=== PATIENT | female | born 1935 | race Caucasian/White ===

== ENCOUNTER 2017-05-18 09:51 | Inpatient (IN) | payer BC, OTHER ==
[~2017-05-18] VITALS: Ht 152.4 cm; Wt 79.4 kg
[2017-05-18] MEDS ORDERED: MECLIZINE HCL 12.5 MG TABLET. PO ONE (10:45)
--- NOTE | 2017-05-18 10:49 | EKG ---
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
[2017-05-18 10:54] LABS: BASO # 0.1 x10^3/uL (0.0-0.2); BASO % 1 % (0-3); EOS % 2 % (0-3); HEMATOCRIT 38.3 % (36.0-47.0); HEMOGLOBIN 12.9 g/dL (12.0-15.5); LYMPH # 1.8 x10^3/uL (1.0-4.8); LYMPH % 27 % (24-48); MEAN CORPUSCULAR HEMOGLOBIN 32 pg (25-35); MEAN CORPUSCULAR HGB CONC 34 g/dL (31-37); MEAN CORPUSCULAR VOLUME 94 fL (79-100); MONO % 7 % (0-9); NEUT % 63 % (31-73); PLATELET COUNT 199 x10^3/uL (140-400); RED CELL DISTRIBUTION WIDTH 13.7 % (11.5-14.5); WHITE BLOOD COUNT 6.8 x10^3/uL (4.0-11.0)
[2017-05-18 11:02] LABS: PROTHROMBIN TIME PATIENT 12.9 SEC (11.7-14.0)
[2017-05-18 11:06] LABS: CALCIUM 9.2 mg/dL (8.5-10.1); CREATININE 0.9 mg/dL (0.6-1.0); GFR 59.9; POTASSIUM 4.3 mmol/L (3.5-5.1)
[2017-05-18 11:13] LABS: ALBUMIN 3.6 g/dL (3.4-5.0); ALBUMIN/GLOBULIN RATIO 0.9 (1.0-1.7); TOTAL BILIRUBIN 0.6 mg/dL (0.2-1.0); TOTAL PROTEIN 7.8 g/dL (6.4-8.2)
--- NOTE | 2017-05-18 11:27 | RAD ---
CT head Indication: Vertigo Technique: CT head without IV contrast Comparison: None Findings: No pathologic extra-axial or intra-axial fluid collection. No midline shift. The ventricles and basal cisterns are within normal limits. No acute intracranial bleed. No focal loss of orellana-white of consolidation. No calvarial lesions. Visualized paranasal sinuses and mastoid air cells are clear. Impression: No acute intracranial process on this noncontrast CT. PQRS Compliance Statement: One or more of the following individualized dose reduction techniques were utilized for this examination: 1. Automated exposure control 2. Adjustment of the mA and/or kV according to patient size 3. Use of iterative reconstruction technique
--- NOTE | 2017-05-18 11:28 | RAD ---
Chest x-ray Indication: Palpitation Technique: Portable AP upright chest x-ray Comparison: Previous study from 04/08 2008 Findings: Heart is normal in size. Lungs are clear. No pneumothorax or pleural effusion. Visualized bony thorax within normal limits. Impression: No acute cardiopulmonary process.
[2017-05-18 11:59] LABS: BILIRUBIN,URINE NEGATIVE (NEG); GLUCOSE,URINE NEGATIVE (NEG); NITRITE,URINE NEGATIVE (NEG); PROTEIN,URINE NEGATIVE (NEG-TRACE); UROBILINOGEN,URINE 0.2 mg/dL (0.2 mg/dL)
[2017-05-18 12:19] LABS: SQUAMOUS EPITHELIAL CELL,UR MOD /LPF
[2017-05-18 12:20] LABS: BACTERIA,URINE MODERATE /HPF (0-FEW); RBC,URINE 0 /HPF (0-2)
[2017-05-18] MEDS ORDERED: ONDANSETRON PF 4 MG/2 ML VIAL. IV PRN (13:45)
[2017-05-18] MEDS ORDERED: ACETAMINOPHEN 325 MG TABLET. PO PRN (13:45)
--- NOTE | 2017-05-18 14:25 | PHYS DOC ---
Past Medical History Past Medical History: Asthma, Cancer, High Cholesterol, Hypertension Additional Past Medical Histor: Breast CA Past Surgical History: Appendectomy, Cancer Surgery, Cholecystectomy, Hysterectomy, Tonsillectomy Additional Past Surgical Histo: R Mastectomy Alcohol Use: None Drug Use: None Adult General Chief Complaint Chief Complaint: DIZZY/LIGHT HEADED HPI HPI Patient is a 82 year old female who presents with vertigo & palpitations. The patient reports onset of symptoms this morning with dizziness/lightheadedness/ vertigo, palpitations, chest tightness. She states symptoms are better while at rest now. she denies fevers/chills, headache, vision changes, shortness of breath, extremity numbness/weakness, nausea, vomiting, diarrhea. She denies previous history of similar symptoms. She has history of arrhythmia, takes metoprolol, amlodipine, losartan prescribed by Dr. Epstein. She denies history of CAD, CVA. PCP is Dr. Freeman. Review of Systems Review of Systems Constitutional: Denies fever or chills Eyes: Denies change in visual acuity HENT: Denies nasal congestion or sore throat Respiratory: Denies cough or shortness of breath Cardiovascular: Reports palpitations & chest tightness. Denies edema GI: Denies abdominal pain, nausea, vomiting, bloody stools or diarrhea : Denies dysuria or hematuria Musculoskeletal: Denies back pain or joint pain Integument: Denies rash or skin lesions Neurologic: Reports vertigo. Denies headache, focal weakness or sensory changes Current Medications Current Medications Current Medications Medications (Trade) Dose Ordered Sig/Opal Start Time Stop Time Status Last Admin Dose Admin Meclizine HCl (Antivert) 12.5 mg 1X ONCE 05/18/17 10:45 05/18/17 10:47 DC 05/18/17 10:57 12.5 MG Allergies Allergies Allergies Coded Allergies Type Severity Reaction Last Updated Verified No Known Drug Allergies 05/18/17 No Physical Exam Physical Exam Constitutional: obese, no acute distress, non-toxic appearance. HENT: Normocephalic, atraumatic, bilateral external ears normal, oropharynx moist, nose normal. TMs clear bilaterally. Eyes: PERRLA, EOMI, conjunctiva normal, no discharge. Neck: supple, no stridor. Cardiovascular: RRR, no murmurs, no edema. Lungs & Thorax: LCTAB, no wheezing, no respiratory distress. Abdomen: soft, nontender, nondistended. Skin: Warm, dry, no erythema, no rash. Back: No tenderness. Extremities: No tenderness, no edema. distal pulses 2+ bilateral lower extremities. Neurologic: Alert and oriented X 3, CN2-12 grossly intact, symmetric strength/ sensation to upper & lower extremities, no focal deficits noted. Psychologic: Affect normal, judgement normal, mood normal. Current Patient Data Vital Signs Vital Signs Date Time Temp Pulse Resp B/P (MAP) Pulse Ox O2 Delivery O2 Flow Rate FiO2 05/18/17 12:40 65 15 171/77 (108) 97 Room Air 05/18/17 09:59 98.4 98.4 Lab Values Laboratory Tests Test 05/18/17 10:35 05/18/17 11:48 White Blood Count 6.8 x10^3/uL (4.0-11.0) Red Blood Count 4.10 x10^6/uL (3.50-5.40) Hemoglobin 12.9 g/dL (12.0-15.5) Hematocrit 38.3 % (36.0-47.0) Mean Corpuscular Volume 94 fL (79-100) Mean Corpuscular Hemoglobin 32 pg (25-35) Mean Corpuscular Hemoglobin Concent 34 g/dL (31-37) Red Cell Distribution Width 13.7 % (11.5-14.5) Platelet Count 199 x10^3/uL (140-400) Neutrophils (%) (Auto) 63 % (31-73) Lymphocytes (%) (Auto) 27 % (24-48) Monocytes (%) (Auto) 7 % (0-9) Eosinophils (%) (Auto) 2 % (0-3) Basophils (%) (Auto) 1 % (0-3) Neutrophils # (Auto) 4.3 x10^3uL (1.8-7.7) Lymphocytes # (Auto) 1.8 x10^3/uL (1.0-4.8) Monocytes # (Auto) 0.5 x10^3/uL (0.0-1.1) Eosinophils # (Auto) 0.1 x10^3/uL (0.0-0.7) Basophils # (Auto) 0.1 x10^3/uL (0.0-0.2) Prothrombin Time 12.9 SEC (11.7-14.0) Prothrombin Time INR 1.0 (0.8-1.1) PTT 25 SEC (24-38) Sodium Level 139 mmol/L (136-145) Potassium Level 4.3 mmol/L (3.5-5.1) Chloride Level 103 mmol/L (98-107) Carbon Dioxide Level 31 mmol/L (21-32) Anion Gap 5 (6-14) L Blood Urea Nitrogen 16 mg/dL (7-20) Creatinine 0.9 mg/dL (0.6-1.0) Estimated GFR (Cockcroft-Gault) 59.9 BUN/Creatinine Ratio 18 (6-20) Glucose Level 118 mg/dL (70-99) H Calcium Level 9.2 mg/dL (8.5-10.1) Magnesium Level 2.3 mg/dL (1.8-2.4) Total Bilirubin 0.6 mg/dL (0.2-1.0) Aspartate Amino Transferase (AST) 20 U/L (15-37) Alanine Aminotransferase (ALT) 25 U/L (14-59) Alkaline Phosphatase 79 U/L (46-116) Troponin I Quantitative < 0.017 ng/mL (0.000-0.055) BO-Gsw-D-Type Natriuretic Peptide 193 pg/mL (0-449) Total Protein 7.8 g/dL (6.4-8.2) Albumin 3.6 g/dL (3.4-5.0) Albumin/Globulin Ratio 0.9 (1.0-1.7) L Thyroid Stimulating Hormone (TSH) 3.882 uIU/mL (0.358-3.74) H Urine Collection Type Unknown Urine Color Yellow Urine Clarity Clear Urine pH 6.0 Urine Specific [place] 1.010 Urine Protein Negative mg/dL (NEG-TRACE) Urine Glucose (UA) Negative mg/dL (NEG) Urine Ketones (Stick) Negative mg/dL (NEG) Urine Blood Negative (NEG) Urine Nitrite Negative (NEG) Urine Bilirubin Negative (NEG) Urine Urobilinogen Dipstick 0.2 mg/dL (0.2 mg/dL) Urine Leukocyte Esterase Trace (NEG) Urine RBC 0 /HPF (0-2) Urine WBC 1-4 /HPF (0-4) Urine Squamous Epithelial Cells Mod /LPF Urine Bacteria Moderate /HPF (0-FEW) Laboratory Tests 05/18/17 10:35 Laboratory Tests 05/18/17 10:35 EKG EKG interpreted by me: NSR rate 68, no acute ST/T wave changes, normal intervals, no ectopy.[] Radiology/Procedures Radiology/Procedures PROCEDURE: CT HEAD WO CONTRAST CT head Indication: Vertigo Technique: CT head without IV contrast Comparison: None Findings: No pathologic extra-axial or intra-axial fluid collection. No midline shift. The ventricles and basal cisterns are within normal limits. No acute intracranial bleed. No focal loss of orellana-white of consolidation. No calvarial lesions. Visualized paranasal sinuses and mastoid air cells are clear. Impression: No acute intracranial process on this noncontrast CT. PQRS Compliance Statement: One or more of the following individualized dose reduction techniques were utilized for this examination: 1. Automated exposure control 2. Adjustment of the mA and/or kV according to patient size 3. Use of iterative reconstruction technique DICTATED and SIGNED BY: SOLEDAD STARKS DO DATE: 05/18/171120 PROCEDURE: CHEST AP ONLY Chest x-ray Indication: Palpitation Technique: Portable AP upright chest x-ray Comparison: Previous study from 04/08 2008 Findings: Heart is normal in size. Lungs are clear. No pneumothorax or pleural effusion. Visualized bony thorax within normal limits. Impression: No acute cardiopulmonary process. DICTATED and SIGNED BY: SOLEDAD STARKS DO DATE: 05/18/17 112[] Course & Med Decision Making Course & Med Decision Making Pertinent Labs and Imaging studies reviewed. (See chart for details) The patient presents with vertigo and palpitations. She still has some residual dizziness. No focal findings on exam. No arrhythmia on telemetry monitoring. Gave meclizine. Obtained labs, EKG, chest x-ray, head CT. No significant abnormality identified. She had persistent dizziness/vertigo with ambulation in the department. Recommended admission to the hospital for further evaluation and treatment. She agreed with plan of care. Discussed with Dr. Marie who agrees to admit to inpatient status, cardiology consult to Dr. Epstein & neurology consult to Dr. Thorpe. The patient was admitted in stable condition. [] Dragon Disclaimer Dragon Disclaimer This electronic medical record was generated, in whole or in part, using a voice recognition dictation system. Departure Departure Impression: Primary Impression: Vertigo Additional Impression: Palpitations Disposition: ADMITTED INPATIENT Admitting Physician: Gay Marie Condition: STABLE Referrals: JONATHAN FREEMAN MD (PCP) Problem Qualifiers MARGARITO MITCHELL MD May 18, 2017 14:25
[2017-05-18 14:52] VITALS: BP 167/61
[2017-05-18 14:54] VITALS: BP 167/61
--- NOTE | 2017-05-18 15:13 | PDOC2 ---
CARDIAC CONSULT DATE OF CONSULT Date of Consult DATE: 05/18/17 TIME: 15:05 REASON FOR CONSULT Reason for Consult: palpitations REFERRING PHYSICIAN Referring Physician: Dr. De La Fuente SOURCE Source: Chart review, Patient HISTORY OF PRESENT ILLNESS HISTORY OF PRESENT ILLNESS This is an 82 yo female who presented with complaints of palpitations, dizziness , and ringing in the ear. Patient reports symptoms began upon awakening this morning. Could feel heart beating fast in her chest. Laid back down in bed, felt dizzy. Sat up and felt nauseated and fatigued. Called son who called our office and was recommended to go to the ED if symptoms did not subside. Denies any chest pain, SOA, or diaphoresis. Symptoms resolved prior to arrival. Does have a history of palpations. Had an event monitor in the past that did not reveal any significant arrhythmias. Reports compliance with medications. PAST MEDICAL HISTORY Cardiovascular: CHF (diastolic ), HTN, Hyperlipidemia, Other (palpitations ) Pulmonary: Asthma GI: GERD Heme/Onc: Anemia NOS, Cancer (breast ) Hepatobiliary: No pertinent hx Psych: Depression Musculoskeletal: Osteoarthritis Rheumatologic: No pertinent hx Infectious disease: No pertinent hx ENT: No pertinent hx Renal/: Chronic renal insuff Endocrine: No pertinent hx, Osteoporosis Dermatology: No pertinent hx PAST SURGICAL HISTORY Past Surgical History: Appendectomy, Cholecystectomy, Tonsillectomy, Hysterectomy, Other (mastectomy ) FAMILY HISTORY Family History: Diabetes SOCIAL HISTORY Smoke: No ALCOHOL: none Drugs: None Lives: with Family CURRENT MEDICATIONS CURRENT MEDICATIONS Current Medications Medications (Trade) Dose Ordered Sig/Opal Route PRN Reason Start Time Stop Time Status Last Admin Dose Admin Meclizine HCl (Antivert) 12.5 mg 1X ONCE PO 05/18/17 10:45 05/18/17 10:47 DC 05/18/17 10:57 ALLERGIES ALLERGIES: Coded Allergies: No Known Drug Allergies (Unverified , 05/18/17) ROS Review of System 14 point ROS conducted with pertinent positives noted above in HPI. PHYSICAL EXAM General: Alert, Oriented X3, Cooperative, No acute distress HEENT: Atraumatic, Mucous membr. moist/pink Lungs: Clear to auscultation, Normal air movement Heart: Regular rate, Normal S1, Normal S2 Abdomen: Soft, No tenderness Extremities: Normal pulses, Other (1+ bilateral LE edema ) Skin: No breakdown, No significant lesion Neuro: Normal speech, Sensation intact Psych/Mental Status: Mental status NL, Mood NL MUSCULOSKELETAL: Osteoarthritic changes both hands VITALS VITALS Vital Signs Date Time Temp Pulse Resp B/P (MAP) Pulse Ox O2 Delivery O2 Flow Rate FiO2 05/18/17 14:54 98.3 74 17 167/61 (96) 93 Room Air 98.3 LABS Lab: Laboratory Tests Test 05/18/17 10:35 05/18/17 11:48 White Blood Count 6.8 x10^3/uL (4.0-11.0) Red Blood Count 4.10 x10^6/uL (3.50-5.40) Hemoglobin 12.9 g/dL (12.0-15.5) Hematocrit 38.3 % (36.0-47.0) Mean Corpuscular Volume 94 fL (79-100) Mean Corpuscular Hemoglobin 32 pg (25-35) Mean Corpuscular Hemoglobin Concent 34 g/dL (31-37) Red Cell Distribution Width 13.7 % (11.5-14.5) Platelet Count 199 x10^3/uL (140-400) Neutrophils (%) (Auto) 63 % (31-73) Lymphocytes (%) (Auto) 27 % (24-48) Monocytes (%) (Auto) 7 % (0-9) Eosinophils (%) (Auto) 2 % (0-3) Basophils (%) (Auto) 1 % (0-3) Neutrophils # (Auto) 4.3 x10^3uL (1.8-7.7) Lymphocytes # (Auto) 1.8 x10^3/uL (1.0-4.8) Monocytes # (Auto) 0.5 x10^3/uL (0.0-1.1) Eosinophils # (Auto) 0.1 x10^3/uL (0.0-0.7) Basophils # (Auto) 0.1 x10^3/uL (0.0-0.2) Prothrombin Time 12.9 SEC (11.7-14.0) Prothromb Time International Ratio 1.0 (0.8-1.1) Activated Partial Thromboplast Time 25 SEC (24-38) Sodium Level 139 mmol/L (136-145) Potassium Level 4.3 mmol/L (3.5-5.1) Chloride Level 103 mmol/L (98-107) Carbon Dioxide Level 31 mmol/L (21-32) Anion Gap 5 (6-14) Blood Urea Nitrogen 16 mg/dL (7-20) Creatinine 0.9 mg/dL (0.6-1.0) Estimated GFR (Cockcroft-Gault) 59.9 BUN/Creatinine Ratio 18 (6-20) Glucose Level 118 mg/dL (70-99) Calcium Level 9.2 mg/dL (8.5-10.1) Total Bilirubin 0.6 mg/dL (0.2-1.0) Aspartate Amino Transf (AST/SGOT) 20 U/L (15-37) Alanine Aminotransferase (ALT/SGPT) 25 U/L (14-59) Alkaline Phosphatase 79 U/L (46-116) Troponin I Quantitative < 0.017 ng/mL (0.000-0.055) SZ-Xbz-U-Type Natriuretic Peptide 193 pg/mL (0-449) Total Protein 7.8 g/dL (6.4-8.2) Albumin 3.6 g/dL (3.4-5.0) Albumin/Globulin Ratio 0.9 (1.0-1.7) Thyroid Stimulating Hormone (TSH) 3.882 uIU/mL (0.358-3.74) Urine Collection Type Unknown Urine Color Yellow Urine Clarity Clear Urine pH 6.0 Urine Specific [place] 1.010 Urine Protein Negative mg/dL (NEG-TRACE) Urine Glucose (UA) Negative mg/dL (NEG) Urine Ketones (Stick) Negative mg/dL (NEG) Urine Blood Negative (NEG) Urine Nitrite Negative (NEG) Urine Bilirubin Negative (NEG) Urine Urobilinogen Dipstick 0.2 mg/dL (0.2 mg/dL) Urine Leukocyte Esterase Trace (NEG) Urine RBC 0 /HPF (0-2) Urine WBC 1-4 /HPF (0-4) Urine Squamous Epithelial Cells Mod /LPF Urine Bacteria Moderate /HPF (0-FEW) ASSESSMENT/PLAN ASSESSMENT/PLAN 1. Palpitations, ? tachyarrhythmia; resolved 2. Hypertension; labile 3. Hyperlipidemia; check lipids 4. Chronic diastolic heart failure; compensated. LVEF previously 53% 5. Tinnitus Recommendations Place on telemetry and monitor Check lipids, TSH, Mg Consider increasing metoprolol for better rate control Check echo to assess LV function/presence of structural abnormalities Resume home anti HTN therapy; monitor to assess need for titration Problems: GERMAINE SHERIDAN APRN May 18, 2017 15:13
--- NOTE | 2017-05-18 15:13 | PDOC2 ---
NEUROLOGY CONSULT Date of Admission Date of Admission DATE: 05/18/17 TIME: 15:07 Reason for Consult Reason for Consult: Vertigo Referring Physician Referring Physician: Dr. Marie PCP: Dr. Quinn Source Source: Chart review, Patient History of Present Illness History of Present Illness The patient is an 82-year-old right-handed female who woke up this morning with a feeling of tinnitus in the right ear. 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 She noticed a fluttering in her chest. She has followed with Dr. Epstein for her cardiac problems. She then noticed room spinning vertigo worse when she laid down and better when she sat up. She laid down once more and had the vertigo. Since then she has had no more vertigo. There was no diplopia, dysphagia, dysarthria, numbness, or weakness. There is no history of stroke, seizure, or head injury. Past Medical History Cardiovascular: HTN, Hyperlipidemia Pulmonary: Asthma Heme/Onc: Cancer (breast) Past Surgical History Past Surgical History: Appendectomy, Cholecystectomy, Mastectomy, Tonsillectomy , Hysterectomy Family History Family History: No pertinent hx Social History Social History , lives with son, no alcohol or tobacco Current Medications Current Medications Current Medications Meclizine HCl (Antivert) 12.5 mg 1X ONCE PO Last administered on 05/18/17t 10: 57; Start 05/18/17 at 10:45; Stop 05/18/17 at 10:47; Status DC Ondansetron HCl (Zofran) 4 mg PRN Q8HRS PRN IV NAUSEA/VOMITING; Start 05/18/17 at 13:45; Stop 05/19/17 at 13:44 Acetaminophen (Tylenol) 650 mg PRN Q4HRS PRN PO FEVER; Start 05/18/17 at 13:45 ; Stop 05/19/17 at 13:44 Allergies Allergies: Coded Allergies: No Known Drug Allergies (Unverified , 05/18/17) ROS Review of System Patient denies fevers, chills, weight loss, dyspnea, angina, abdominal pain, change in bowels, or dysuria. 14 point review of systems is negative. Physical Exam Physical Examination PHYSICAL EXAMINATION: Vital signs: see above. General appearance is normal and in no acute distress. HEENT: Normocephalic and nontraumatic. Eyes, nose, ears, and throat are unremarkable. Tympanic membranes clear. Neck is supple. No lymphadenopathy. No bruits are heard over the carotid artery. No crepitus. NEUROLOGICAL EXAMINATION: Mental Status Examination: Alert. Oriented to time, place, and person. Answers questions and follows commends. Pupils are equal round and reactive to light and accommodation. Extraocular movements are intact. Visual field exam shows no defect on the direct confrontation. No motor or sensory deficits on the facial exam. Uvula in the midline and the soft palate elevated symmetrically. No deviation of the tongue to any direction. Hearing loss in the right ear. Shoulder shrug normal. Muscle tone is normal. Muscle strength is 5. Deep tendon reflexes are 2+ all around. Plantar reflex is with flexion response bilaterally. Vwxdtn-ws-zogp test performance is accurate. Tandem walk test is accurate. Alternative movements are accurate. Romberg test is negative. Gait is arthritic, she uses a cane. Sensory exam shows no deficits. No cerebellar signs are elicited. Vitals VITALS Vital Signs Date Time Temp Pulse Resp B/P (MAP) Pulse Ox O2 Delivery O2 Flow Rate FiO2 05/18/17 14:54 98.3 74 17 167/61 (96) 93 Room Air 98.3 Labs Labs Laboratory Tests Test 05/18/17 10:35 05/18/17 11:48 White Blood Count 6.8 x10^3/uL (4.0-11.0) Red Blood Count 4.10 x10^6/uL (3.50-5.40) Hemoglobin 12.9 g/dL (12.0-15.5) Hematocrit 38.3 % (36.0-47.0) Mean Corpuscular Volume 94 fL (79-100) Mean Corpuscular Hemoglobin 32 pg (25-35) Mean Corpuscular Hemoglobin Concent 34 g/dL (31-37) Red Cell Distribution Width 13.7 % (11.5-14.5) Platelet Count 199 x10^3/uL (140-400) Neutrophils (%) (Auto) 63 % (31-73) Lymphocytes (%) (Auto) 27 % (24-48) Monocytes (%) (Auto) 7 % (0-9) Eosinophils (%) (Auto) 2 % (0-3) Basophils (%) (Auto) 1 % (0-3) Neutrophils # (Auto) 4.3 x10^3uL (1.8-7.7) Lymphocytes # (Auto) 1.8 x10^3/uL (1.0-4.8) Monocytes # (Auto) 0.5 x10^3/uL (0.0-1.1) Eosinophils # (Auto) 0.1 x10^3/uL (0.0-0.7) Basophils # (Auto) 0.1 x10^3/uL (0.0-0.2) Prothrombin Time 12.9 SEC (11.7-14.0) Prothromb Time International Ratio 1.0 (0.8-1.1) Activated Partial Thromboplast Time 25 SEC (24-38) Sodium Level 139 mmol/L (136-145) Potassium Level 4.3 mmol/L (3.5-5.1) Chloride Level 103 mmol/L (98-107) Carbon Dioxide Level 31 mmol/L (21-32) Anion Gap 5 (6-14) Blood Urea Nitrogen 16 mg/dL (7-20) Creatinine 0.9 mg/dL (0.6-1.0) Estimated GFR (Cockcroft-Gault) 59.9 BUN/Creatinine Ratio 18 (6-20) Glucose Level 118 mg/dL (70-99) Calcium Level 9.2 mg/dL (8.5-10.1) Total Bilirubin 0.6 mg/dL (0.2-1.0) Aspartate Amino Transf (AST/SGOT) 20 U/L (15-37) Alanine Aminotransferase (ALT/SGPT) 25 U/L (14-59) Alkaline Phosphatase 79 U/L (46-116) Troponin I Quantitative < 0.017 ng/mL (0.000-0.055) TH-Avj-X-Type Natriuretic Peptide 193 pg/mL (0-449) Total Protein 7.8 g/dL (6.4-8.2) Albumin 3.6 g/dL (3.4-5.0) Albumin/Globulin Ratio 0.9 (1.0-1.7) Thyroid Stimulating Hormone (TSH) 3.882 uIU/mL (0.358-3.74) Urine Collection Type Unknown Urine Color Yellow Urine Clarity Clear Urine pH 6.0 Urine Specific [place] 1.010 Urine Protein Negative mg/dL (NEG-TRACE) Urine Glucose (UA) Negative mg/dL (NEG) Urine Ketones (Stick) Negative mg/dL (NEG) Urine Blood Negative (NEG) Urine Nitrite Negative (NEG) Urine Bilirubin Negative (NEG) Urine Urobilinogen Dipstick 0.2 mg/dL (0.2 mg/dL) Urine Leukocyte Esterase Trace (NEG) Urine RBC 0 /HPF (0-2) Urine WBC 1-4 /HPF (0-4) Urine Squamous Epithelial Cells Mod /LPF Urine Bacteria Moderate /HPF (0-FEW) Laboratory Tests Test 05/18/17 10:35 05/18/17 11:48 White Blood Count 6.8 x10^3/uL (4.0-11.0) Red Blood Count 4.10 x10^6/uL (3.50-5.40) Hemoglobin 12.9 g/dL (12.0-15.5) Hematocrit 38.3 % (36.0-47.0) Mean Corpuscular Volume 94 fL (79-100) Mean Corpuscular Hemoglobin 32 pg (25-35) Mean Corpuscular Hemoglobin Concent 34 g/dL (31-37) Red Cell Distribution Width 13.7 % (11.5-14.5) Platelet Count 199 x10^3/uL (140-400) Neutrophils (%) (Auto) 63 % (31-73) Lymphocytes (%) (Auto) 27 % (24-48) Monocytes (%) (Auto) 7 % (0-9) Eosinophils (%) (Auto) 2 % (0-3) Basophils (%) (Auto) 1 % (0-3) Neutrophils # (Auto) 4.3 x10^3uL (1.8-7.7) Lymphocytes # (Auto) 1.8 x10^3/uL (1.0-4.8) Monocytes # (Auto) 0.5 x10^3/uL (0.0-1.1) Eosinophils # (Auto) 0.1 x10^3/uL (0.0-0.7) Basophils # (Auto) 0.1 x10^3/uL (0.0-0.2) Prothrombin Time 12.9 SEC (11.7-14.0) Prothromb Time International Ratio 1.0 (0.8-1.1) Activated Partial Thromboplast Time 25 SEC (24-38) Sodium Level 139 mmol/L (136-145) Potassium Level 4.3 mmol/L (3.5-5.1) Chloride Level 103 mmol/L (98-107) Carbon Dioxide Level 31 mmol/L (21-32) Anion Gap 5 (6-14) Blood Urea Nitrogen 16 mg/dL (7-20) Creatinine 0.9 mg/dL (0.6-1.0) Estimated GFR (Cockcroft-Gault) 59.9 BUN/Creatinine Ratio 18 (6-20) Glucose Level 118 mg/dL (70-99) Calcium Level 9.2 mg/dL (8.5-10.1) Total Bilirubin 0.6 mg/dL (0.2-1.0) Aspartate Amino Transf (AST/SGOT) 20 U/L (15-37) Alanine Aminotransferase (ALT/SGPT) 25 U/L (14-59) Alkaline Phosphatase 79 U/L (46-116) Troponin I Quantitative < 0.017 ng/mL (0.000-0.055) EB-Wra-D-Type Natriuretic Peptide 193 pg/mL (0-449) Total Protein 7.8 g/dL (6.4-8.2) Albumin 3.6 g/dL (3.4-5.0) Albumin/Globulin Ratio 0.9 (1.0-1.7) Thyroid Stimulating Hormone (TSH) 3.882 uIU/mL (0.358-3.74) Urine Collection Type Unknown Urine Color Yellow Urine Clarity Clear Urine pH 6.0 Urine Specific [place] 1.010 Urine Protein Negative mg/dL (NEG-TRACE) Urine Glucose (UA) Negative mg/dL (NEG) Urine Ketones (Stick) Negative mg/dL (NEG) Urine Blood Negative (NEG) Urine Nitrite Negative (NEG) Urine Bilirubin Negative (NEG) Urine Urobilinogen Dipstick 0.2 mg/dL (0.2 mg/dL) Urine Leukocyte Esterase Trace (NEG) Urine RBC 0 /HPF (0-2) Urine WBC 1-4 /HPF (0-4) Urine Squamous Epithelial Cells Mod /LPF Urine Bacteria Moderate /HPF (0-FEW) Images Images Findings: No pathologic extra-axial or intra-axial fluid collection. No midline shift. The ventricles and basal cisterns are within normal limits. No acute intracranial bleed. No focal loss of orellana-white of consolidation. No calvarial lesions. Visualized paranasal sinuses and mastoid air cells are clear. Impression: No acute intracranial process on this noncontrast CT. Assessment/Plan Assessment/Plan Impression: Vertigo, peripheral, suspect right labyrinthine dysfunction although bedside examination is now completely normal. Prior hearing loss right ear No evidence of central problem such as stroke. Cardiac arrhythmia, possible, and superficially it sounds like she could've had fibrillation with an embolic stroke, but none is apparent on examination. Recommendations: Cardiac evaluation Hold on MRI of the brain Rehabilitation screening Home tomorrow if stable. Thank you for letting me help with the patient's care. NARINDER GATES MD May 18, 2017 15:13
[2017-05-18] MEDS ORDERED: CHOL100013 PO (15:15)
[2017-05-18] MEDS ORDERED: ASPI-630 PO (15:15)
[2017-05-18] MEDS ORDERED: ASCO10002 PO (15:15)
[2017-05-18] MEDS ORDERED: AMLO10TA2 PO (15:15)
[2017-05-18] MEDS ORDERED: METO50TA6 PO (15:15)
[2017-05-18] MEDS ORDERED: BENA20TA2 PO (15:15)
[2017-05-18 19:55] VITALS: BP 166/59
[2017-05-18] MEDS: LISINOPRIL 20 MG TABLET PO SCH (21:00)
[2017-05-18] MEDS: METOPROLOL TART IMMED RELEASE 50 MG TABLET. PO SCH (21:00)
[2017-05-18 23:35] VITALS: BP 154/69
[2017-05-19 02:29] LABS: BASO % 1 % (0-3); EOS % 2 % (0-3); HEMATOCRIT 35.8 % (36.0-47.0); HEMOGLOBIN 11.9 g/dL (12.0-15.5); LYMPH # 1.7 x10^3/uL (1.0-4.8); LYMPH % 29 % (24-48); MEAN CORPUSCULAR HEMOGLOBIN 31 pg (25-35); MEAN CORPUSCULAR HGB CONC 33 g/dL (31-37); MEAN CORPUSCULAR VOLUME 93 fL (79-100); MONO % 9 % (0-9); NEUT % 60 % (31-73); PLATELET COUNT 179 x10^3/uL (140-400); RED BLOOD COUNT 3.84 x10^6/uL (3.50-5.40); WHITE BLOOD COUNT 6.1 x10^3/uL (4.0-11.0)
[2017-05-19 03:33] LABS: CALCIUM 8.6 mg/dL (8.5-10.1); CREATININE 0.8 mg/dL (0.6-1.0); GFR 68.7; POTASSIUM 3.7 mmol/L (3.5-5.1)
[2017-05-19 03:35] VITALS: BP 150/59
[2017-05-19 03:45] LABS: CHOLESTEROL/HDL RATIO 3.9
[2017-05-19 06:56] VITALS: BP 151/49
--- NOTE | 2017-05-19 07:59 | PDOC ---
PROGRESS NOTES Assessment Problems Medical Problems: (1) Palpitations Status: Acute (2) Vertigo Status: Acute Vertigo, peripheral, suspect right labyrinthine dysfunction although bedside examination is now completely normal. Prior hearing loss right ear No evidence of central problem such as stroke. Cardiac arrhythmia, possible, and superficially it sounds like she could've had fibrillation with an embolic stroke, but none is apparent on examination. Plan Cardiac evaluation Hold on MRI of the brain Rehabilitation screening Home today Follow-up with neurology as needed Subjective Feels better, wants to go home, worried about blood pressure fluctuations, though Objective Vital Signs Date Time Temp Pulse Resp B/P (MAP) Pulse Ox O2 Delivery O2 Flow Rate FiO2 05/19/17 06:56 97.4 71 18 151/49 (83) 95 Room Air 97.4 PHYSICAL EXAM Alert. Oriented to time, place and person. PERRL. EOMI. no nystagmus CN: Right ear hearing loss, otherwise no focal findings. Muscle tone: normal. Muscle strength: 5/5 DTR: 2+ Plantar reflex: Flexor Gait: Does well with minimal assistance, note that she chronically uses a cane Sensory exam: no abnormal findings. No cerebellar signs elicited. Review of Relevant I have reviewed the following items deni (where applicable) has been applied. Labs Laboratory Tests Test 05/18/17 10:35 05/18/17 11:48 05/19/17 02:00 White Blood Count 6.8 x10^3/uL (4.0-11.0) 6.1 x10^3/uL (4.0-11.0) Red Blood Count 4.10 x10^6/uL (3.50-5.40) 3.84 x10^6/uL (3.50-5.40) Hemoglobin 12.9 g/dL (12.0-15.5) 11.9 g/dL (12.0-15.5) Hematocrit 38.3 % (36.0-47.0) 35.8 % (36.0-47.0) Mean Corpuscular Volume 94 fL (79-100) 93 fL (79-100) Mean Corpuscular Hemoglobin 32 pg (25-35) 31 pg (25-35) Mean Corpuscular Hemoglobin Concent 34 g/dL (31-37) 33 g/dL (31-37) Red Cell Distribution Width 13.7 % (11.5-14.5) 14.0 % (11.5-14.5) Platelet Count 199 x10^3/uL (140-400) 179 x10^3/uL (140-400) Neutrophils (%) (Auto) 63 % (31-73) 60 % (31-73) Lymphocytes (%) (Auto) 27 % (24-48) 29 % (24-48) Monocytes (%) (Auto) 7 % (0-9) 9 % (0-9) Eosinophils (%) (Auto) 2 % (0-3) 2 % (0-3) Basophils (%) (Auto) 1 % (0-3) 1 % (0-3) Neutrophils # (Auto) 4.3 x10^3uL (1.8-7.7) 3.6 x10^3uL (1.8-7.7) Lymphocytes # (Auto) 1.8 x10^3/uL (1.0-4.8) 1.7 x10^3/uL (1.0-4.8) Monocytes # (Auto) 0.5 x10^3/uL (0.0-1.1) 0.5 x10^3/uL (0.0-1.1) Eosinophils # (Auto) 0.1 x10^3/uL (0.0-0.7) 0.1 x10^3/uL (0.0-0.7) Basophils # (Auto) 0.1 x10^3/uL (0.0-0.2) 0.0 x10^3/uL (0.0-0.2) Prothrombin Time 12.9 SEC (11.7-14.0) Prothromb Time International Ratio 1.0 (0.8-1.1) Activated Partial Thromboplast Time 25 SEC (24-38) Sodium Level 139 mmol/L (136-145) 139 mmol/L (136-145) Potassium Level 4.3 mmol/L (3.5-5.1) 3.7 mmol/L (3.5-5.1) Chloride Level 103 mmol/L (98-107) 105 mmol/L (98-107) Carbon Dioxide Level 31 mmol/L (21-32) 30 mmol/L (21-32) Anion Gap 5 (6-14) 4 (6-14) Blood Urea Nitrogen 16 mg/dL (7-20) 13 mg/dL (7-20) Creatinine 0.9 mg/dL (0.6-1.0) 0.8 mg/dL (0.6-1.0) Estimated GFR (Cockcroft-Gault) 59.9 68.7 BUN/Creatinine Ratio 18 (6-20) Glucose Level 118 mg/dL (70-99) 103 mg/dL (70-99) Calcium Level 9.2 mg/dL (8.5-10.1) 8.6 mg/dL (8.5-10.1) Magnesium Level 2.3 mg/dL (1.8-2.4) Total Bilirubin 0.6 mg/dL (0.2-1.0) Aspartate Amino Transf (AST/SGOT) 20 U/L (15-37) Alanine Aminotransferase (ALT/SGPT) 25 U/L (14-59) Alkaline Phosphatase 79 U/L (46-116) Troponin I Quantitative < 0.017 ng/mL (0.000-0.055) < 0.017 ng/mL (0.000-0.055) AB-Tad-A-Type Natriuretic Peptide 193 pg/mL (0-449) Total Protein 7.8 g/dL (6.4-8.2) Albumin 3.6 g/dL (3.4-5.0) Albumin/Globulin Ratio 0.9 (1.0-1.7) Thyroid Stimulating Hormone (TSH) 3.882 uIU/mL (0.358-3.74) Urine Collection Type Unknown Urine Color Yellow Urine Clarity Clear Urine pH 6.0 Urine Specific [place] 1.010 Urine Protein Negative mg/dL (NEG-TRACE) Urine Glucose (UA) Negative mg/dL (NEG) Urine Ketones (Stick) Negative mg/dL (NEG) Urine Blood Negative (NEG) Urine Nitrite Negative (NEG) Urine Bilirubin Negative (NEG) Urine Urobilinogen Dipstick 0.2 mg/dL (0.2 mg/dL) Urine Leukocyte Esterase Trace (NEG) Urine RBC 0 /HPF (0-2) Urine WBC 1-4 /HPF (0-4) Urine Squamous Epithelial Cells Mod /LPF Urine Bacteria Moderate /HPF (0-FEW) Triglycerides Level 106 mg/dL (0-150) Cholesterol Level 165 mg/dL (0-200) LDL Cholesterol, Calculated 102 mg/dL (0-100) VLDL Cholesterol, Calculated 21 mg/dL (0-40) Non-HDL Cholesterol Calculated 123 mg/dL (0-129) HDL Cholesterol 42 mg/dL (40-60) Cholesterol/HDL Ratio 3.9 Laboratory Tests Test 05/18/17 10:35 05/18/17 11:48 05/19/17 02:00 White Blood Count 6.8 x10^3/uL (4.0-11.0) 6.1 x10^3/uL (4.0-11.0) Red Blood Count 4.10 x10^6/uL (3.50-5.40) 3.84 x10^6/uL (3.50-5.40) Hemoglobin 12.9 g/dL (12.0-15.5) 11.9 g/dL (12.0-15.5) Hematocrit 38.3 % (36.0-47.0) 35.8 % (36.0-47.0) Mean Corpuscular Volume 94 fL (79-100) 93 fL (79-100) Mean Corpuscular Hemoglobin 32 pg (25-35) 31 pg (25-35) Mean Corpuscular Hemoglobin Concent 34 g/dL (31-37) 33 g/dL (31-37) Red Cell Distribution Width 13.7 % (11.5-14.5) 14.0 % (11.5-14.5) Platelet Count 199 x10^3/uL (140-400) 179 x10^3/uL (140-400) Neutrophils (%) (Auto) 63 % (31-73) 60 % (31-73) Lymphocytes (%) (Auto) 27 % (24-48) 29 % (24-48) Monocytes (%) (Auto) 7 % (0-9) 9 % (0-9) Eosinophils (%) (Auto) 2 % (0-3) 2 % (0-3) Basophils (%) (Auto) 1 % (0-3) 1 % (0-3) Neutrophils # (Auto) 4.3 x10^3uL (1.8-7.7) 3.6 x10^3uL (1.8-7.7) Lymphocytes # (Auto) 1.8 x10^3/uL (1.0-4.8) 1.7 x10^3/uL (1.0-4.8) Monocytes # (Auto) 0.5 x10^3/uL (0.0-1.1) 0.5 x10^3/uL (0.0-1.1) Eosinophils # (Auto) 0.1 x10^3/uL (0.0-0.7) 0.1 x10^3/uL (0.0-0.7) Basophils # (Auto) 0.1 x10^3/uL (0.0-0.2) 0.0 x10^3/uL (0.0-0.2) Prothrombin Time 12.9 SEC (11.7-14.0) Prothromb Time International Ratio 1.0 (0.8-1.1) Activated Partial Thromboplast Time 25 SEC (24-38) Sodium Level 139 mmol/L (136-145) 139 mmol/L (136-145) Potassium Level 4.3 mmol/L (3.5-5.1) 3.7 mmol/L (3.5-5.1) Chloride Level 103 mmol/L (98-107) 105 mmol/L (98-107) Carbon Dioxide Level 31 mmol/L (21-32) 30 mmol/L (21-32) Anion Gap 5 (6-14) 4 (6-14) Blood Urea Nitrogen 16 mg/dL (7-20) 13 mg/dL (7-20) Creatinine 0.9 mg/dL (0.6-1.0) 0.8 mg/dL (0.6-1.0) Estimated GFR (Cockcroft-Gault) 59.9 68.7 BUN/Creatinine Ratio 18 (6-20) Glucose Level 118 mg/dL (70-99) 103 mg/dL (70-99) Calcium Level 9.2 mg/dL (8.5-10.1) 8.6 mg/dL (8.5-10.1) Magnesium Level 2.3 mg/dL (1.8-2.4) Total Bilirubin 0.6 mg/dL (0.2-1.0) Aspartate Amino Transf (AST/SGOT) 20 U/L (15-37) Alanine Aminotransferase (ALT/SGPT) 25 U/L (14-59) Alkaline Phosphatase 79 U/L (46-116) Troponin I Quantitative < 0.017 ng/mL (0.000-0.055) < 0.017 ng/mL (0.000-0.055) ID-Ifc-B-Type Natriuretic Peptide 193 pg/mL (0-449) Total Protein 7.8 g/dL (6.4-8.2) Albumin 3.6 g/dL (3.4-5.0) Albumin/Globulin Ratio 0.9 (1.0-1.7) Thyroid Stimulating Hormone (TSH) 3.882 uIU/mL (0.358-3.74) Urine Collection Type Unknown Urine Color Yellow Urine Clarity Clear Urine pH 6.0 Urine Specific [place] 1.010 Urine Protein Negative mg/dL (NEG-TRACE) Urine Glucose (UA) Negative mg/dL (NEG) Urine Ketones (Stick) Negative mg/dL (NEG) Urine Blood Negative (NEG) Urine Nitrite Negative (NEG) Urine Bilirubin Negative (NEG) Urine Urobilinogen Dipstick 0.2 mg/dL (0.2 mg/dL) Urine Leukocyte Esterase Trace (NEG) Urine RBC 0 /HPF (0-2) Urine WBC 1-4 /HPF (0-4) Urine Squamous Epithelial Cells Mod /LPF Urine Bacteria Moderate /HPF (0-FEW) Triglycerides Level 106 mg/dL (0-150) Cholesterol Level 165 mg/dL (0-200) LDL Cholesterol, Calculated 102 mg/dL (0-100) VLDL Cholesterol, Calculated 21 mg/dL (0-40) Non-HDL Cholesterol Calculated 123 mg/dL (0-129) HDL Cholesterol 42 mg/dL (40-60) Cholesterol/HDL Ratio 3.9 Medications Current Medications Meclizine HCl (Antivert) 12.5 mg 1X ONCE PO Last administered on 05/18/17t 10: 57; Start 05/18/17 at 10:45; Stop 05/18/17 at 10:47; Status DC Ondansetron HCl (Zofran) 4 mg PRN Q8HRS PRN IV NAUSEA/VOMITING; Start 05/18/17 at 13:45; Stop 05/19/17 at 13:44 Acetaminophen (Tylenol) 650 mg PRN Q4HRS PRN PO FEVER; Start 05/18/17 at 13:45 ; Stop 05/19/17 at 13:44 Amlodipine Besylate (Norvasc) 10 mg DAILY PO ; Start 05/19/17 at 09:00 Aspirin (Children'S Aspirin) 81 mg DAILY PO ; Start 05/19/17 at 09:00 Metoprolol Tartrate (Lopressor) 50 mg BID PO ; Start 05/18/17 at 21:00 Lisinopril (Prinivil) 20 mg BID PO ; Start 05/18/17 at 21:00 Active Scripts Active Reported Amlodipine Besylate 10 Mg Tablet 10 Mg PO DAILY Metoprolol Tartrate 50 Mg Tablet 1 Tab PO BID Vitamin C (Ascorbic Acid) 1,000 Mg Tablet 1,000 Mg PO Vitamin D (Cholecalciferol (Vitamin D3)) 1,000 Unit Capsule 1 Cap PO DAILY Aspirin 81 Mg Tab.chew 1 Tab PO DAILY Benazepril Hcl 20 Mg Tablet 1 Tab PO BID Vitals/I & O Vital Sign - Last 24 Hours 05/18/17 05/18/17 05/18/17 05/18/17 09:59 10:57 11:40 12:10 Temp 98.4 98.4 Pulse 69 70 68 62 Resp 18 16 16 B/P (MAP) 174/95 (121) 189/81 (117) 143/64 (90) 161/72 (101) Pulse Ox 97 94 97 O2 Delivery Room Air Room Air Room Air Room Air 05/18/17 05/18/17 05/18/17 05/18/17 12:40 13:10 13:40 14:10 Pulse 65 68 66 66 Resp 15 16 16 14 B/P (MAP) 171/77 (108) 159/70 (99) 159/68 (98) 178/74 (108) Pulse Ox 97 97 98 95 O2 Delivery Room Air Room Air Room Air Room Air 05/18/17 05/18/17 05/18/17 05/18/17 14:41 14:52 14:54 19:55 Temp 98.3 98.3 97.9 98.3 98.3 97.9 Pulse 74 74 64 Resp 17 17 16 B/P (MAP) 167/61 (96) 167/61 (96) 166/59 (94) Pulse Ox 93 93 93 O2 Delivery Room Air Room Air Room Air Room Air 05/18/17 05/18/17 05/19/17 05/19/17 20:00 23:35 03:35 06:56 Temp 98.5 97.7 97.4 98.5 97.7 97.4 Pulse 65 75 71 Resp 16 18 18 B/P (MAP) 154/69 (97) 150/59 (89) 151/49 (83) Pulse Ox 92 94 95 O2 Delivery Room Air Room Air Room Air Room Air NARINDER GATES MD May 19, 2017 07:59
[2017-05-19] MEDS: METOPROLOL TART IMMED RELEASE 50 MG TABLET. PO SCH (08:42)
[2017-05-19] MEDS: LISINOPRIL 20 MG TABLET PO SCH (08:42)
--- NOTE | 2017-05-19 08:58 | PDOC1 ---
History and Physical Date of Admission Date of Admission 05/18/17 Identification/Chief Complaint Chief Complaint dizzy, palpitation Problems: Source Source: Chart review, Patient History of Present Illness History of Present Illness Patient is a 82 year old female who presents with vertigo & palpitations. The patient reports onset of symptoms this morning with dizziness/lightheadedness/ vertigo, palpitations, chest tightness. She states symptoms are better while at rest now. she denies fevers/chills, headache, vision changes, shortness of breath, extremity numbness/weakness, nausea, vomiting, diarrhea. She denies previous history of similar symptoms. She has history of arrhythmia, takes metoprolol, amlodipine, losartan prescribed by Dr. Epstein. She denies history of CAD, CVA. Past Medical History Cardiovascular: HTN, Hyperlipidemia Pulmonary: Asthma CENTRAL NERVOUS SYSTEM: Vertigo GI: GERD Heme/Onc: Cancer (breast) Hepatobiliary: No pertinent hx Psych: Depression Rheumatologic: Other (DJD) Infectious disease: No pertinent hx ENT: Other (hearing loss and tinnitus R ear) Renal/: Chronic renal insuff Endocrine: Osteoporosis Dermatology: No pertinent hx Past Surgical History Past Surgical History: Appendectomy, Cholecystectomy, Tonsillectomy, Hysterectomy, Other (mastectomy ) Family History Family History: Diabetes Social History Smoke: No ALCOHOL: none Drugs: None Current Problem List Problem List Problems Medical Problems: (1) Palpitations Status: Acute (2) Vertigo Status: Acute Current Medications Current Medications Current Medications Medications (Trade) Dose Ordered Sig/Opal Start Time Stop Time Status Last Admin Dose Admin Acetaminophen (Tylenol) 650 mg PRN Q4HRS PRN 05/18/17 13:45 05/19/17 13:44 Amlodipine Besylate (Norvasc) 10 mg DAILY 05/19/17 09:00 05/19/17 08:42 10 MG Aspirin (Children'S Aspirin) 81 mg DAILY 05/19/17 09:00 05/19/17 08:41 81 MG Lisinopril (Prinivil) 20 mg BID 05/18/17 21:00 05/19/17 08:42 20 MG Meclizine HCl (Antivert) 12.5 mg 1X ONCE 05/18/17 10:45 05/18/17 10:47 DC 05/18/17 10:57 12.5 MG Metoprolol Tartrate (Lopressor) 50 mg BID 05/18/17 21:00 05/19/17 08:42 50 MG Ondansetron HCl (Zofran) 4 mg PRN Q8HRS PRN 05/18/17 13:45 05/19/17 13:44 05/19/17 08:43 4 MG Allergies Allergies Allergies Coded Allergies Type Severity Reaction Last Updated Verified No Known Drug Allergies 05/18/17 No ROS Review of System CONSTITUTIONAL: No fever or chills EYES: No recent changes SKIN: No rash or itching CARDIOVASCULAR: No chest pain, syncope ,edema, + palpitation as above RESPIRATORY: No SOB or cough GASTROINTESTINAL: No nausea, vomiting or abdominal pain NEUROLOGICAL: No headaches or weakness ENDOCRINE: No cold or heat intolerance GENITOURINARY: No urgency or frequency of urination MUSCULOSKELETAL: No back pain or joint pain LYMPHATICS: No enlarged lymph nodes Physical Exam Physical Exam GEN.: No apparent distress. Alert and oriented. HEENT: Head is normocephalic, atraumatic NECK: Supple. LUNGS: Clear to auscultation. HEART: RRR, S1, S2 present. Peripheral pulses intact ABDOMEN: Soft, nontender. Positive bowel sounds. EXTREMITIES: Without any cyanosis. NEUROLOGIC: Normal speech, normal tone PSYCHIATRIC: Normal affect, normal mood. SKIN: No ulcerations Vitals Vitals Vital Signs Date Time Temp Pulse Resp B/P (MAP) Pulse Ox O2 Delivery O2 Flow Rate FiO2 05/19/17 08:42 71 151/49 05/19/17 08:00 Room Air 05/19/17 06:56 97.4 18 95 97.4 Labs Labs Laboratory Tests Test 05/18/17 10:35 05/18/17 11:48 05/19/17 02:00 White Blood Count 6.8 x10^3/uL (4.0-11.0) 6.1 x10^3/uL (4.0-11.0) Red Blood Count 4.10 x10^6/uL (3.50-5.40) 3.84 x10^6/uL (3.50-5.40) Hemoglobin 12.9 g/dL (12.0-15.5) 11.9 g/dL (12.0-15.5) Hematocrit 38.3 % (36.0-47.0) 35.8 % (36.0-47.0) Mean Corpuscular Volume 94 fL (79-100) 93 fL (79-100) Mean Corpuscular Hemoglobin 32 pg (25-35) 31 pg (25-35) Mean Corpuscular Hemoglobin Concent 34 g/dL (31-37) 33 g/dL (31-37) Red Cell Distribution Width 13.7 % (11.5-14.5) 14.0 % (11.5-14.5) Platelet Count 199 x10^3/uL (140-400) 179 x10^3/uL (140-400) Neutrophils (%) (Auto) 63 % (31-73) 60 % (31-73) Lymphocytes (%) (Auto) 27 % (24-48) 29 % (24-48) Monocytes (%) (Auto) 7 % (0-9) 9 % (0-9) Eosinophils (%) (Auto) 2 % (0-3) 2 % (0-3) Basophils (%) (Auto) 1 % (0-3) 1 % (0-3) Neutrophils # (Auto) 4.3 x10^3uL (1.8-7.7) 3.6 x10^3uL (1.8-7.7) Lymphocytes # (Auto) 1.8 x10^3/uL (1.0-4.8) 1.7 x10^3/uL (1.0-4.8) Monocytes # (Auto) 0.5 x10^3/uL (0.0-1.1) 0.5 x10^3/uL (0.0-1.1) Eosinophils # (Auto) 0.1 x10^3/uL (0.0-0.7) 0.1 x10^3/uL (0.0-0.7) Basophils # (Auto) 0.1 x10^3/uL (0.0-0.2) 0.0 x10^3/uL (0.0-0.2) Prothrombin Time 12.9 SEC (11.7-14.0) Prothromb Time International Ratio 1.0 (0.8-1.1) Activated Partial Thromboplast Time 25 SEC (24-38) Sodium Level 139 mmol/L (136-145) 139 mmol/L (136-145) Potassium Level 4.3 mmol/L (3.5-5.1) 3.7 mmol/L (3.5-5.1) Chloride Level 103 mmol/L (98-107) 105 mmol/L (98-107) Carbon Dioxide Level 31 mmol/L (21-32) 30 mmol/L (21-32) Anion Gap 5 (6-14) 4 (6-14) Blood Urea Nitrogen 16 mg/dL (7-20) 13 mg/dL (7-20) Creatinine 0.9 mg/dL (0.6-1.0) 0.8 mg/dL (0.6-1.0) Estimated GFR (Cockcroft-Gault) 59.9 68.7 BUN/Creatinine Ratio 18 (6-20) Glucose Level 118 mg/dL (70-99) 103 mg/dL (70-99) Calcium Level 9.2 mg/dL (8.5-10.1) 8.6 mg/dL (8.5-10.1) Magnesium Level 2.3 mg/dL (1.8-2.4) Total Bilirubin 0.6 mg/dL (0.2-1.0) Aspartate Amino Transf (AST/SGOT) 20 U/L (15-37) Alanine Aminotransferase (ALT/SGPT) 25 U/L (14-59) Alkaline Phosphatase 79 U/L (46-116) Troponin I Quantitative < 0.017 ng/mL (0.000-0.055) < 0.017 ng/mL (0.000-0.055) QH-Mkt-U-Type Natriuretic Peptide 193 pg/mL (0-449) Total Protein 7.8 g/dL (6.4-8.2) Albumin 3.6 g/dL (3.4-5.0) Albumin/Globulin Ratio 0.9 (1.0-1.7) Thyroid Stimulating Hormone (TSH) 3.882 uIU/mL (0.358-3.74) Urine Collection Type Unknown Urine Color Yellow Urine Clarity Clear Urine pH 6.0 Urine Specific [place] 1.010 Urine Protein Negative mg/dL (NEG-TRACE) Urine Glucose (UA) Negative mg/dL (NEG) Urine Ketones (Stick) Negative mg/dL (NEG) Urine Blood Negative (NEG) Urine Nitrite Negative (NEG) Urine Bilirubin Negative (NEG) Urine Urobilinogen Dipstick 0.2 mg/dL (0.2 mg/dL) Urine Leukocyte Esterase Trace (NEG) Urine RBC 0 /HPF (0-2) Urine WBC 1-4 /HPF (0-4) Urine Squamous Epithelial Cells Mod /LPF Urine Bacteria Moderate /HPF (0-FEW) Triglycerides Level 106 mg/dL (0-150) Cholesterol Level 165 mg/dL (0-200) LDL Cholesterol, Calculated 102 mg/dL (0-100) VLDL Cholesterol, Calculated 21 mg/dL (0-40) Non-HDL Cholesterol Calculated 123 mg/dL (0-129) HDL Cholesterol 42 mg/dL (40-60) Cholesterol/HDL Ratio 3.9 Laboratory Tests Test 05/18/17 10:35 05/18/17 11:48 05/19/17 02:00 White Blood Count 6.8 x10^3/uL (4.0-11.0) 6.1 x10^3/uL (4.0-11.0) Red Blood Count 4.10 x10^6/uL (3.50-5.40) 3.84 x10^6/uL (3.50-5.40) Hemoglobin 12.9 g/dL (12.0-15.5) 11.9 g/dL (12.0-15.5) Hematocrit 38.3 % (36.0-47.0) 35.8 % (36.0-47.0) Mean Corpuscular Volume 94 fL (79-100) 93 fL (79-100) Mean Corpuscular Hemoglobin 32 pg (25-35) 31 pg (25-35) Mean Corpuscular Hemoglobin Concent 34 g/dL (31-37) 33 g/dL (31-37) Red Cell Distribution Width 13.7 % (11.5-14.5) 14.0 % (11.5-14.5) Platelet Count 199 x10^3/uL (140-400) 179 x10^3/uL (140-400) Neutrophils (%) (Auto) 63 % (31-73) 60 % (31-73) Lymphocytes (%) (Auto) 27 % (24-48) 29 % (24-48) Monocytes (%) (Auto) 7 % (0-9) 9 % (0-9) Eosinophils (%) (Auto) 2 % (0-3) 2 % (0-3) Basophils (%) (Auto) 1 % (0-3) 1 % (0-3) Neutrophils # (Auto) 4.3 x10^3uL (1.8-7.7) 3.6 x10^3uL (1.8-7.7) Lymphocytes # (Auto) 1.8 x10^3/uL (1.0-4.8) 1.7 x10^3/uL (1.0-4.8) Monocytes # (Auto) 0.5 x10^3/uL (0.0-1.1) 0.5 x10^3/uL (0.0-1.1) Eosinophils # (Auto) 0.1 x10^3/uL (0.0-0.7) 0.1 x10^3/uL (0.0-0.7) Basophils # (Auto) 0.1 x10^3/uL (0.0-0.2) 0.0 x10^3/uL (0.0-0.2) Prothrombin Time 12.9 SEC (11.7-14.0) Prothromb Time International Ratio 1.0 (0.8-1.1) Activated Partial Thromboplast Time 25 SEC (24-38) Sodium Level 139 mmol/L (136-145) 139 mmol/L (136-145) Potassium Level 4.3 mmol/L (3.5-5.1) 3.7 mmol/L (3.5-5.1) Chloride Level 103 mmol/L (98-107) 105 mmol/L (98-107) Carbon Dioxide Level 31 mmol/L (21-32) 30 mmol/L (21-32) Anion Gap 5 (6-14) 4 (6-14) Blood Urea Nitrogen 16 mg/dL (7-20) 13 mg/dL (7-20) Creatinine 0.9 mg/dL (0.6-1.0) 0.8 mg/dL (0.6-1.0) Estimated GFR (Cockcroft-Gault) 59.9 68.7 BUN/Creatinine Ratio 18 (6-20) Glucose Level 118 mg/dL (70-99) 103 mg/dL (70-99) Calcium Level 9.2 mg/dL (8.5-10.1) 8.6 mg/dL (8.5-10.1) Magnesium Level 2.3 mg/dL (1.8-2.4) Total Bilirubin 0.6 mg/dL (0.2-1.0) Aspartate Amino Transf (AST/SGOT) 20 U/L (15-37) Alanine Aminotransferase (ALT/SGPT) 25 U/L (14-59) Alkaline Phosphatase 79 U/L (46-116) Troponin I Quantitative < 0.017 ng/mL (0.000-0.055) < 0.017 ng/mL (0.000-0.055) NT-Rcv-L-Type Natriuretic Peptide 193 pg/mL (0-449) Total Protein 7.8 g/dL (6.4-8.2) Albumin 3.6 g/dL (3.4-5.0) Albumin/Globulin Ratio 0.9 (1.0-1.7) Thyroid Stimulating Hormone (TSH) 3.882 uIU/mL (0.358-3.74) Urine Collection Type Unknown Urine Color Yellow Urine Clarity Clear Urine pH 6.0 Urine Specific [place] 1.010 Urine Protein Negative mg/dL (NEG-TRACE) Urine Glucose (UA) Negative mg/dL (NEG) Urine Ketones (Stick) Negative mg/dL (NEG) Urine Blood Negative (NEG) Urine Nitrite Negative (NEG) Urine Bilirubin Negative (NEG) Urine Urobilinogen Dipstick 0.2 mg/dL (0.2 mg/dL) Urine Leukocyte Esterase Trace (NEG) Urine RBC 0 /HPF (0-2) Urine WBC 1-4 /HPF (0-4) Urine Squamous Epithelial Cells Mod /LPF Urine Bacteria Moderate /HPF (0-FEW) Triglycerides Level 106 mg/dL (0-150) Cholesterol Level 165 mg/dL (0-200) LDL Cholesterol, Calculated 102 mg/dL (0-100) VLDL Cholesterol, Calculated 21 mg/dL (0-40) Non-HDL Cholesterol Calculated 123 mg/dL (0-129) HDL Cholesterol 42 mg/dL (40-60) Cholesterol/HDL Ratio 3.9 VTE Prophylaxis Ordered VTE Prophylaxis Devices: Yes VTE Pharmacological Prophylaxi: No (short stay) Assessment/Plan Assessment/Plan 1-Vertigo with nausea and tinnitus due to right labyrinthine dysfunction 2-hearing loss / tinnitus right ear 3- palpitation and Cardiac arrhythmia, agree with holter monitor and check echo and Cardiac evaluation 4-HTN agree with increase B stephan 5-HLD 6-hx breast CA 7- early hypothyroidism plan to start supplement when cardiac w/u clear discussed rehab facility , she would rather home health , plan PT screening today and may be home later today if ok with Neurology and C.V ADRIENNE WANG MD May 19, 2017 08:58
[2017-05-19] MEDS ORDERED: amLODIPine BESYLATE 10 MG TABLET PO SCH (09:00)
[2017-05-19] MEDS ORDERED: ASPIRIN CHEWABLE 81 MG TABLET. PO SCH (09:00)
[2017-05-19] MEDS ORDERED: ONDA4TAB7 PO (09:41)
[2017-05-19] MEDS ORDERED: MECL25TA3 PO (09:41)
--- NOTE | 2017-05-19 09:45 | PDOC3 ---
Discharge Summary* Date of Admission: May 18, 2017 Date of Discharge: May 19, 2017 Admitting Diagnosis Problems Medical Problems: (1) Palpitations Status: Acute (2) Vertigo Status: Acute Problems: Final Diagnosis 1-Vertigo with nausea and tinnitus due to right labyrinthine dysfunction 2-hearing loss / tinnitus right ear 3- palpitation and Cardiac arrhythmia, agree with holter monitor and check echo and Cardiac evaluation 4-HTN agree with increase B stephan 5-HLD 6-hx breast CA 7- early hypothyroidism plan to start supplement when cardiac w/u clear Problems Medical Problems: (1) Palpitations Status: Acute (2) Vertigo Status: Acute CONSULTS cardiology, neurology Procedures CXR, CT head, Echo Brief Hospital Course Ms. Ferraro is a 82 old [sex] who presented with [ ] Disposition/Orders: D/C to Home w/ HH CONDITION AT DISCHARGE: Improved Diet: Cardiac Scheduled Amlodipine Besylate (Amlodipine Besylate), 10 MG PO DAILY, (Reported) Aspirin (Aspirin), 1 TAB PO DAILY, (Reported) Benazepril Hcl (Benazepril Hcl), 1 TAB PO BID, (Reported) Cholecalciferol (Vitamin D3) (Vitamin D), 1 CAP PO DAILY, (Reported) Metoprolol Tartrate (Metoprolol Tartrate), 1 TAB PO BID, (Reported) Miscellaneous Medications Ascorbic Acid (Vitamin C), 1,000 MG PO, (Reported) FOLLOW UP APPOINTMENT: Dr. giles 1 week check Bp, re evaluate thyroid may need medication, cardiology to follow on holter and possible arrhythmia in 2 week Time Spent Total time spent with patient [] minutes for coordination of care, counseling, and education. ADRIENNE WANG MD May 19, 2017 09:45
--- NOTE | 2017-05-19 09:48 | PDOC ---
SUBJECTIVE Subjective dizziness is better but nausea this AM, just recieved medication OBJECTIVE Vital Signs Vital Signs Date Time Temp Pulse Resp B/P (MAP) Pulse Ox O2 Delivery O2 Flow Rate FiO2 05/19/17 08:42 71 151/49 05/19/17 08:42 71 151/49 05/19/17 08:42 71 151/49 05/19/17 08:00 Room Air 05/19/17 06:56 97.4 71 18 151/49 (83) 95 Room Air 97.4 05/19/17 03:35 97.7 75 18 150/59 (89) 94 Room Air 97.7 05/18/17 23:35 98.5 65 16 154/69 (97) 92 Room Air 98.5 05/18/17 20:00 Room Air 05/18/17 19:55 97.9 64 16 166/59 (94) 93 Room Air 97.9 05/18/17 14:54 98.3 74 17 167/61 (96) 93 Room Air 98.3 05/18/17 14:52 98.3 74 17 167/61 (96) 93 Room Air 98.3 05/18/17 14:41 Room Air 05/18/17 14:10 66 14 178/74 (108) 95 Room Air 05/18/17 13:40 66 16 159/68 (98) 98 Room Air 05/18/17 13:10 68 16 159/70 (99) 97 Room Air 05/18/17 12:40 65 15 171/77 (108) 97 Room Air 05/18/17 12:10 62 16 161/72 (101) 97 Room Air 05/18/17 11:40 68 16 143/64 (90) 94 Room Air 05/18/17 10:57 70 189/81 (117) Room Air 05/18/17 09:59 98.4 69 18 174/95 (121) 97 Room Air 98.4 PHYSICAL EXAM Physical Exam lungs clear heart RRR abd soft ext no edema ASSESSMENT/PLAN Assessment/Plan echo being done this AM, no arrhythmia over night may need holter , refuse rehab placement christophe do PT screening to make sure home health with PT is appropriate Problems: COMMENT Lab Laboratory Tests Test 05/18/17 10:35 05/18/17 11:48 05/19/17 02:00 White Blood Count 6.8 x10^3/uL (4.0-11.0) 6.1 x10^3/uL (4.0-11.0) Red Blood Count 4.10 x10^6/uL (3.50-5.40) 3.84 x10^6/uL (3.50-5.40) Hemoglobin 12.9 g/dL (12.0-15.5) 11.9 g/dL (12.0-15.5) Hematocrit 38.3 % (36.0-47.0) 35.8 % (36.0-47.0) Mean Corpuscular Volume 94 fL (79-100) 93 fL (79-100) Mean Corpuscular Hemoglobin 32 pg (25-35) 31 pg (25-35) Mean Corpuscular Hemoglobin Concent 34 g/dL (31-37) 33 g/dL (31-37) Red Cell Distribution Width 13.7 % (11.5-14.5) 14.0 % (11.5-14.5) Platelet Count 199 x10^3/uL (140-400) 179 x10^3/uL (140-400) Neutrophils (%) (Auto) 63 % (31-73) 60 % (31-73) Lymphocytes (%) (Auto) 27 % (24-48) 29 % (24-48) Monocytes (%) (Auto) 7 % (0-9) 9 % (0-9) Eosinophils (%) (Auto) 2 % (0-3) 2 % (0-3) Basophils (%) (Auto) 1 % (0-3) 1 % (0-3) Neutrophils # (Auto) 4.3 x10^3uL (1.8-7.7) 3.6 x10^3uL (1.8-7.7) Lymphocytes # (Auto) 1.8 x10^3/uL (1.0-4.8) 1.7 x10^3/uL (1.0-4.8) Monocytes # (Auto) 0.5 x10^3/uL (0.0-1.1) 0.5 x10^3/uL (0.0-1.1) Eosinophils # (Auto) 0.1 x10^3/uL (0.0-0.7) 0.1 x10^3/uL (0.0-0.7) Basophils # (Auto) 0.1 x10^3/uL (0.0-0.2) 0.0 x10^3/uL (0.0-0.2) Prothrombin Time 12.9 SEC (11.7-14.0) Prothromb Time International Ratio 1.0 (0.8-1.1) Activated Partial Thromboplast Time 25 SEC (24-38) Sodium Level 139 mmol/L (136-145) 139 mmol/L (136-145) Potassium Level 4.3 mmol/L (3.5-5.1) 3.7 mmol/L (3.5-5.1) Chloride Level 103 mmol/L (98-107) 105 mmol/L (98-107) Carbon Dioxide Level 31 mmol/L (21-32) 30 mmol/L (21-32) Anion Gap 5 (6-14) 4 (6-14) Blood Urea Nitrogen 16 mg/dL (7-20) 13 mg/dL (7-20) Creatinine 0.9 mg/dL (0.6-1.0) 0.8 mg/dL (0.6-1.0) Estimated GFR (Cockcroft-Gault) 59.9 68.7 BUN/Creatinine Ratio 18 (6-20) Glucose Level 118 mg/dL (70-99) 103 mg/dL (70-99) Calcium Level 9.2 mg/dL (8.5-10.1) 8.6 mg/dL (8.5-10.1) Magnesium Level 2.3 mg/dL (1.8-2.4) Total Bilirubin 0.6 mg/dL (0.2-1.0) Aspartate Amino Transf (AST/SGOT) 20 U/L (15-37) Alanine Aminotransferase (ALT/SGPT) 25 U/L (14-59) Alkaline Phosphatase 79 U/L (46-116) Troponin I Quantitative < 0.017 ng/mL (0.000-0.055) < 0.017 ng/mL (0.000-0.055) AG-Fcn-Y-Type Natriuretic Peptide 193 pg/mL (0-449) Total Protein 7.8 g/dL (6.4-8.2) Albumin 3.6 g/dL (3.4-5.0) Albumin/Globulin Ratio 0.9 (1.0-1.7) Thyroid Stimulating Hormone (TSH) 3.882 uIU/mL (0.358-3.74) Urine Collection Type Unknown Urine Color Yellow Urine Clarity Clear Urine pH 6.0 Urine Specific [place] 1.010 Urine Protein Negative mg/dL (NEG-TRACE) Urine Glucose (UA) Negative mg/dL (NEG) Urine Ketones (Stick) Negative mg/dL (NEG) Urine Blood Negative (NEG) Urine Nitrite Negative (NEG) Urine Bilirubin Negative (NEG) Urine Urobilinogen Dipstick 0.2 mg/dL (0.2 mg/dL) Urine Leukocyte Esterase Trace (NEG) Urine RBC 0 /HPF (0-2) Urine WBC 1-4 /HPF (0-4) Urine Squamous Epithelial Cells Mod /LPF Urine Bacteria Moderate /HPF (0-FEW) Triglycerides Level 106 mg/dL (0-150) Cholesterol Level 165 mg/dL (0-200) LDL Cholesterol, Calculated 102 mg/dL (0-100) VLDL Cholesterol, Calculated 21 mg/dL (0-40) Non-HDL Cholesterol Calculated 123 mg/dL (0-129) HDL Cholesterol 42 mg/dL (40-60) Cholesterol/HDL Ratio 3.9 ADRIENNE WANG MD May 19, 2017 09:48
[2017-05-19 10:15] VITALS: BP 143/51
[2017-05-19 10:20] VITALS: BP 106/39
[2017-05-19 10:33] VITALS: BP 161/53
--- NOTE | 2017-05-19 10:37 | CARD ---
APPROVED REPORT EXAM: Two-dimensional and M-mode echocardiogram with Doppler and color Doppler. Other Information Quality : Fair INDICATION Dizziness and Vertigo LE EDEMA/DIZZINESS 2D DIMENSIONS RVDd3.1 (2.9-3.5cm)Left Atrium(2D)3.7 (1.6-4.0cm) IVSd1.1 (0.7-1.1cm)Aortic Root(2D)2.7 (2.0-3.7cm) LVDd5.1 (3.9-5.9cm)LVOT Diameter1.8 (1.8-2.4cm) PWd1.1 (0.7-1.1cm)LVDs3.4 (2.5-4.0cm) SV72.8 mlLVEF(%)55.0 (>50%) Aortic Valve AoV Peak Chapo.157.1cm/sAoV VTI38.9cm AO Peak GR.9.9mmHgLVOT Peak Chapo.104.9cm/s LVOT VTI 26.82cmAO Mean GR.6mmHg JESSE (VMAX)1.81bw9KKA (VTI)1.84cm2 Mitral Valve MV E Borpqgwa26.0cm/sMV DECEL [id number] MV A Veugzmwi377.2cm/sMV E Mean Gr.3mmHg MV NJO31ibB/A Ratio0.7 MV A [id number] (PHT)3.05cm2 TDI E/Lateral E'7.3E/Medial E'7.6 Pulmonary Valve PV Peak Aikqjjkc16.5cm/sPV Peak Grad.3mmHg RVOT VTI16.5cm Tricuspid Valve TR P. Dfzhszac302of/sTR Peak Gr.36mmHg Pulmonary Vein S1 Dbcnnqvm22.5cm/sD2 Iabirmwd80.4cm/s LEFT VENTRICLE The left ventricle is normal size. There is normal left ventricular wall thickness. The left ventricu lar systolic function is normal. The ejection fraction is estimated at 55-60%. There is normal LV seg mental wall motion. Transmitral Doppler flow pattern is Grade I-abnormal relaxation pattern. RIGHT VENTRICLE The right ventricle is normal size. There is normal right ventricular wall thickness. The right ventr icular systolic function is normal. ATRIA The left atrium size is normal. The right atrium size is normal. The interatrial septum is intact wit h no evidence for an atrial septal defect or patent foramen ovale as noted on 2-D or Doppler imaging. AORTIC VALVE The aortic valve is normal in structure and function. Doppler and Color Flow revealed no significant aortic regurgitation. There is no significant aortic valvular stenosis. MITRAL VALVE The mitral valve is normal in structure and function. Doppler and Color Flow revealed trace to mild m itral regurgitation. TRICUSPID VALVE The tricuspid valve is normal in structure and function. Doppler and Color Flow revealed mild tricusp id regurgitation. The PA pressure was estimated at 38 mmHg. PULMONIC VALVE The pulmonary valve is normal in structure and function. Doppler and Color Flow revealed no pulmonic valvular regurgitation. GREAT VESSELS The aortic root is normal in size. Normal pulmonary venous flow (Doppler). The IVC is normal in size and collapses >50% with inspiration. PERICARDIAL EFFUSION There is no pleural effusion. There is no evidence of significant pericardial effusion. Critical Notification Critical Value: No <Conclusion> The left ventricular systolic function is normal. The ejection fraction is estimated at 55-60%. There is normal LV segmental wall motion. Transmitral Doppler flow pattern is Grade I-abnormal relaxation pattern. Trace to mild mitral regurgitation. Mild tricuspid regurgitation. The PA pressure was estimated at 38 mmHg. There is no evidence of significant pericardial effusion.
[2017-05-19] MEDS ORDERED: IBUPROFEN 800 MG TABLET. PO PRN (12:00)
--- NOTE | 2017-05-19 13:58 | PDOC ---
CARDIO Progress Notes Date and Time Date of Service 05/19/17 Time of Evaluation 1120 Subjective Subjective: No Chest Pain, No shortness of breath, Other (mild nausea) Vitals Vitals Vital Signs Date Time Temp Pulse Resp B/P (MAP) Pulse Ox O2 Delivery O2 Flow Rate FiO2 05/19/17 10:33 98.6 60 18 161/53 (89) 93 Room Air 98.6 Weight Weight [ ] Laboratory Labs Laboratory Tests Test 05/19/17 02:00 White Blood Count 6.1 x10^3/uL (4.0-11.0) Red Blood Count 3.84 x10^6/uL (3.50-5.40) Hemoglobin 11.9 g/dL (12.0-15.5) Hematocrit 35.8 % (36.0-47.0) Mean Corpuscular Volume 93 fL (79-100) Mean Corpuscular Hemoglobin 31 pg (25-35) Mean Corpuscular Hemoglobin Concent 33 g/dL (31-37) Red Cell Distribution Width 14.0 % (11.5-14.5) Platelet Count 179 x10^3/uL (140-400) Neutrophils (%) (Auto) 60 % (31-73) Lymphocytes (%) (Auto) 29 % (24-48) Monocytes (%) (Auto) 9 % (0-9) Eosinophils (%) (Auto) 2 % (0-3) Basophils (%) (Auto) 1 % (0-3) Neutrophils # (Auto) 3.6 x10^3uL (1.8-7.7) Lymphocytes # (Auto) 1.7 x10^3/uL (1.0-4.8) Monocytes # (Auto) 0.5 x10^3/uL (0.0-1.1) Eosinophils # (Auto) 0.1 x10^3/uL (0.0-0.7) Basophils # (Auto) 0.0 x10^3/uL (0.0-0.2) Sodium Level 139 mmol/L (136-145) Potassium Level 3.7 mmol/L (3.5-5.1) Chloride Level 105 mmol/L (98-107) Carbon Dioxide Level 30 mmol/L (21-32) Anion Gap 4 (6-14) Blood Urea Nitrogen 13 mg/dL (7-20) Creatinine 0.8 mg/dL (0.6-1.0) Estimated GFR (Cockcroft-Gault) 68.7 Glucose Level 103 mg/dL (70-99) Calcium Level 8.6 mg/dL (8.5-10.1) Troponin I Quantitative < 0.017 ng/mL (0.000-0.055) Triglycerides Level 106 mg/dL (0-150) Cholesterol Level 165 mg/dL (0-200) LDL Cholesterol, Calculated 102 mg/dL (0-100) VLDL Cholesterol, Calculated 21 mg/dL (0-40) Non-HDL Cholesterol Calculated 123 mg/dL (0-129) HDL Cholesterol 42 mg/dL (40-60) Cholesterol/HDL Ratio 3.9 Microbiology Micro Microbiology 05/18/17 Urine Culture - Preliminary, Resulted 05/18/17 Urine Culture Result 1 ([facility]) - Preliminary, Resulted Physical Exam HEENT: Neck Supple W Full Motion Chest: Symmetric LUNGS: Clear to Auscultation Heart: S1S2, RRR Abdomen: Soft N/T Extremities: No Edema Neurology: alert, oriented, follow commands Assessment Assessment 1. Palpitations, ? tachyarrhythmia; resolved. No acute events or arrhythmias noted on telemetry. TSH mildly elevated 2. Hypertension; better controlled 3. Hyperlipidemia; LDL 102 4. Chronic diastolic heart failure; compensated. Echo showed preserved LV function with an EF of 55-60% Recommendations Metoprolol was increased to 75mg. Patient to report s/s of bradycardia; fatigue , dizziness, syncope, diaphoresis, or vision changes. D/w patient and son. Will plan for event monitor upon discharge; patient will receive via mail May discharge from a CV standpoint and f/u in our office as scheduled. GERMAINE SHERIDAN APRN May 19, 2017 13:57
[2017-05-19] MEDS ORDERED: METOPROLOL TART IMMED RELEASE 50 MG TABLET. PO SCH (21:00)
== END 2017-05-19 17:02 | disposition home health service (06) | DRG 309 ==
LOC: ER 09:51 → 6 SOUTH 12:51
PROVIDERS: ADMIT Internal Medicine; ATTEND Internal Medicine
DX: R00.2 Palpitations (principal); I13.0 Hypertensive heart and chronic kidney disease with heart failure and stage 1 through stage 4 chronic kidney disease, or unspecified chronic kidney disease; I50.32 Chronic diastolic (congestive) heart failure; I49.9 Cardiac arrhythmia, unspecified; H83.2X1 Labyrinthine dysfunction, right ear; H93.11 Tinnitus, right ear; E03.9 Hypothyroidism, unspecified; E78.00 Pure hypercholesterolemia, unspecified; N18.9 Chronic kidney disease, unspecified; E78.5 Hyperlipidemia, unspecified; K21.9 Gastro-esophageal reflux disease without esophagitis; J45.909 Unspecified asthma, uncomplicated; M81.0 Age-related osteoporosis without current pathological fracture; H91.91 Unspecified hearing loss, right ear; F32.9 Major depressive disorder, single episode, unspecified; M19.90 Unspecified osteoarthritis, unspecified site; Z90.11 Acquired absence of right breast and nipple; Z83.3 Family history of diabetes mellitus; Z85.3 Personal history of malignant neoplasm of breast; Z90.49 Acquired absence of other specified parts of digestive tract; Z90.710 Acquired absence of both cervix and uterus
CPT/HCPCS: 36415; 70450; 71010; 80048; 80053; 80061; 81001; 83735; 83880; 84443; 84484; 85025; 85610; 85730; 87086; 87186; 93005; 93306; J2405; J8597; 99285-25

== ENCOUNTER → 2017-07-18 | Outpatient (CLI) | payer BC ==
[~2017-07-18] MED LIST: AMLO10TA2 PO; ASCO10002 PO; ASPI-630 PO; BENA20TA2 PO; CHOL100013 PO; MECL25TA3 PO; METO50TA6 PO; ONDA4TAB7 PO
--- NOTE | 2017-07-18 14:28 | RAD ---
DATE: 07/18/2017 EXAM: DIGITAL SCREEN LT W/CAD HISTORY: Routine screening. COMPARISON: 12/09/2014 and 08/21/2013. This study was interpreted with the benefit of Computerized Aided Detection (CAD). FINDINGS: The parenchymal pattern is stable. There are benign parenchymal and vascular calcifications in the left breast. No mass or malignant appearing microcalcifications are seen. The left axilla is unremarkable. Breast Density: HETERO The breast parenchyma is heterogeneously dense, which could reduce sensitivity of mammography. Breast parenchyma level C. IMPRESSION: No mammographic features suspicious for malignancy are identified. BI-RADS CATEGORY: 2 BENIGN FINDING(S) RECOMMENDED FOLLOW-UP: 12M 12 MONTH FOLLOW-UP PQRS compliance statement: Patient information was entered into a reminder system with a target due date 07/18/2018 for the next mammogram. Mammography is a sensitive method for finding small breast cancers, but it does not detect them all and is not a substitute for careful clinical examination. A negative mammogram does not negate a clinically suspicious finding and should not result in delay in biopsying a clinically suspicious abnormality. "Our facility is accredited by the [employer] Mammography Program."
== END | disposition home or self-care (01) ==
LOC: MAMMO 13:48
PROVIDERS: ATTEND Internal Medicine
DX: Z12.31 Encounter for screening mammogram for malignant neoplasm of breast (principal); Z85.3 Personal history of malignant neoplasm of breast
CPT/HCPCS: G0202; 77067

== ENCOUNTER → 2017-09-12 | Outpatient (CLI) | payer BC ==
[2017-09-12] MEDS: ZOLPIDEM 5 MG TABLET. PO ×2 (21:15)
[2017-09-13] MEDS: OXYMETAZOLINE 0.05% NASAL SPRAY 30ML BOTTLE. NS ×2
== END | disposition home or self-care (01) ==
LOC: RT 18:41
DX: G47.30 Sleep apnea, unspecified (principal)
CPT/HCPCS: 95810

== ENCOUNTER 2017-11-17 12:07 | Inpatient (IN) | payer BC ==
[2017-11-17 12:53] LABS: ADD MAN DIFF? NO
[2017-11-17 12:55] LABS: BASO # 0.1 x10^3/uL (0.0-0.2); BASO % 1 % (0-3); EOS # 0.1 x10^3/uL (0.0-0.7); EOS % 1 % (0-3); HEMATOCRIT 38.3 % (36.0-47.0); HEMOGLOBIN 12.8 g/dL (12.0-15.5); LYMPH # 1.7 x10^3/uL (1.0-4.8); LYMPH % 23 % (24-48); MEAN CORPUSCULAR HEMOGLOBIN 31 pg (25-35); MEAN CORPUSCULAR HGB CONC 34 g/dL (31-37); MEAN CORPUSCULAR VOLUME 91 fL (79-100); MONO # 0.6 x10^3/uL (0.0-1.1); MONO % 8 % (0-9); NEUT % 67 % (31-73); PLATELET COUNT 187 x10^3/uL (140-400); RED BLOOD COUNT 4.19 x10^6/uL (3.50-5.40); WHITE BLOOD COUNT 7.5 x10^3/uL (4.0-11.0)
[2017-11-17] MEDS ORDERED: CONTRAST GIVEN MC (13:00)
[2017-11-17] MEDS: fentaNYL PF VIAL 100 MCG/2 ML VIAL IV ×2 (13:01→15:01)
[2017-11-17] MEDS: IV NORMAL SALINE 1000ML BAG 500 ML IV (13:01)
[2017-11-17] MEDS: ONDANSETRON PF 4 MG/2 ML VIAL. IV ×3 (13:01→20:57)
[2017-11-17 13:08] LABS: ANION GAP 8 (6-14); BLOOD UREA NITROGEN 12 mg/dL (7-20); BUN/CREATININE RATIO 12 (6-20); CALCIUM 9.1 mg/dL (8.5-10.1); CARBON DIOXIDE 31 mmol/L (21-32); CHLORIDE 105 mmol/L (98-107); GFR 53.1; GLUCOSE 107 mg/dL (70-99); POTASSIUM 3.7 mmol/L (3.5-5.1); SODIUM 144 mmol/L (136-145)
[2017-11-17 13:16] LABS: LACTIC ACID 1.2 mmol/L (0.4-2.0); TROPONINI < 0.017 ng/mL (0.000-0.055)
[2017-11-17] MEDS: IOHEXOL 300 MG/ML 100ML VIAL. IV (13:21)
[2017-11-17 13:22] LABS: ALBUMIN 3.5 g/dL (3.4-5.0); ALBUMIN/GLOBULIN RATIO 0.9 (1.0-1.7); ALK PHOS 78 U/L (46-116); ALT (SGPT) 23 U/L (14-59); AST (SGOT) 20 U/L (15-37); LIPASE 114 U/L (73-393); TOTAL BILIRUBIN 0.8 mg/dL (0.2-1.0); TOTAL PROTEIN 7.2 g/dL (6.4-8.2)
[2017-11-17 13:55] LABS: BILIRUBIN,URINE NEGATIVE (NEG); CLARITY,URINE CLEAR; COLOR,URINE YELLOW; GLUCOSE,URINE NEGATIVE (NEG); NITRITE,URINE NEGATIVE (NEG); PROTEIN,URINE NEGATIVE (NEG-TRACE); UROBILINOGEN,URINE 0.2 mg/dL (0.2 mg/dL)
[2017-11-17 14:06] LABS: BACTERIA,URINE MODERATE /HPF (0-FEW); SQUAMOUS EPITHELIAL CELL,UR MOD /LPF
[2017-11-17] MEDS ORDERED: ACETAMINOPHEN 325 MG TABLET. PO (16:00)
[2017-11-17] MEDS: IV NORMAL SALINE 1000ML BAG 1,000 ML IV (16:26)
[2017-11-17] MEDS: MORPHINE SULFATE 4 MG/ML DISP.SYRIN. IV (16:27)
[2017-11-17] MEDS: LISINOPRIL 20 MG TABLET PO (21:28)
[2017-11-17] MEDS: METOPROLOL TART IMMED RELEASE 50 MG TABLET. PO (21:28)
[2017-11-17] MEDS ORDERED: METOCLOPRAMIDE HCL 10 MG/2 ML VIAL. IV (23:45)
[2017-11-18] MEDS: IV NORMAL SALINE 1000ML BAG 1,000 ML IV ×2 (00:18→08:20)
[2017-11-18 05:59] LABS: ADD MAN DIFF? NO
[2017-11-18 06:05] LABS: BASO % 1 % (0-3); EOS # 0.1 x10^3/uL (0.0-0.7); EOS % 1 % (0-3); HEMATOCRIT 32.8 % (36.0-47.0); LYMPH # 1.2 x10^3/uL (1.0-4.8); LYMPH % 20 % (24-48); MEAN CORPUSCULAR HEMOGLOBIN 31 pg (25-35); MEAN CORPUSCULAR HGB CONC 34 g/dL (31-37); MEAN CORPUSCULAR VOLUME 92 fL (79-100); MONO # 0.5 x10^3/uL (0.0-1.1); MONO % 8 % (0-9); NEUT # 4.3 x10^3uL (1.8-7.7); NEUT % 70 % (31-73); PLATELET COUNT 148 x10^3/uL (140-400); RED BLOOD COUNT 3.55 x10^6/uL (3.50-5.40); RED CELL DISTRIBUTION WIDTH 14.1 % (11.5-14.5); WHITE BLOOD COUNT 6.2 x10^3/uL (4.0-11.0)
[2017-11-18] MEDS: LEVOTHYROXINE 25 MCG TABLET. PO (06:06)
[2017-11-18 06:21] LABS: ANION GAP 8 (6-14); BLOOD UREA NITROGEN 9 mg/dL (7-20); CALCIUM 7.8 mg/dL (8.5-10.1); CARBON DIOXIDE 28 mmol/L (21-32); CHLORIDE 108 mmol/L (98-107); GFR 53.1; GLUCOSE 102 mg/dL (70-99); POTASSIUM 3.5 mmol/L (3.5-5.1); SODIUM 144 mmol/L (136-145)
[2017-11-18] MEDS: MONTELUKAST SODIUM 10 MG TABLET. PO (08:20)
[2017-11-18] MEDS: ASPIRIN CHEWABLE 81 MG TABLET. PO (08:21)
[2017-11-18] MEDS: amLODIPine BESYLATE 10 MG TABLET PO (08:21)
[2017-11-18] MEDS: METOPROLOL TART IMMED RELEASE 50 MG TABLET. PO ×2 (08:22→20:44)
[2017-11-18] MEDS: LISINOPRIL 20 MG TABLET PO ×2 (08:22→20:44)
[2017-11-18] MEDS: POLYVINYL ALCOHOL 1.4% OPHTH SOLUTION 15ML BOTTLE. OU (11:33)
[2017-11-18] MEDS: CIPROFLOXACIN HCL 250 MG TABLET. PO ×2 (11:34→20:44)
[2017-11-18] MEDS: hydrALAZINE 25 MG TABLET PO ×2 (16:56→21:00)
[2017-11-18] MEDS: ACETAMINOPHEN 325 MG TABLET. PO (20:44)
[2017-11-19] MEDS: MORPHINE SULFATE 4 MG/ML DISP.SYRIN. IV ×2 (00:19→06:02)
[2017-11-19] MEDS: ONDANSETRON PF 4 MG/2 ML VIAL. IV ×2 (00:24→08:10)
[2017-11-19] MEDS: LEVOTHYROXINE 25 MCG TABLET. PO (06:02)
[2017-11-19] MEDS: MONTELUKAST SODIUM 10 MG TABLET. PO (09:14)
[2017-11-19] MEDS: amLODIPine BESYLATE 10 MG TABLET PO (09:15)
[2017-11-19] MEDS: LISINOPRIL 20 MG TABLET PO (09:16)
[2017-11-19] MEDS: ASPIRIN CHEWABLE 81 MG TABLET. PO (09:16)
[2017-11-19] MEDS: CIPROFLOXACIN HCL 250 MG TABLET. PO (09:16)
[2017-11-19] MEDS: hydrALAZINE 25 MG TABLET PO ×2 (09:16→14:00)
[2017-11-19] MEDS: METOPROLOL TART IMMED RELEASE 50 MG TABLET. PO (09:17)
[2017-11-19] MEDS: LACTOBACILLUS RHAMNOSUS GG 1 CAPSULE. PO (13:00)
== END 2017-11-19 15:45 | disposition home or self-care (01) | DRG 694 ==
LOC: ER 12:07 → 4 NORTH 14:54
DX: N13.2 Hydronephrosis with renal and ureteral calculous obstruction (principal); I48.91 Unspecified atrial fibrillation; N39.0 Urinary tract infection, site not specified; E03.9 Hypothyroidism, unspecified; E78.00 Pure hypercholesterolemia, unspecified; E78.5 Hyperlipidemia, unspecified; I12.9 Hypertensive chronic kidney disease with stage 1 through stage 4 chronic kidney disease, or unspecified chronic kidney disease; N18.9 Chronic kidney disease, unspecified; J45.909 Unspecified asthma, uncomplicated; K21.9 Gastro-esophageal reflux disease without esophagitis; F32.9 Major depressive disorder, single episode, unspecified; M19.90 Unspecified osteoarthritis, unspecified site; M81.0 Age-related osteoporosis without current pathological fracture; K43.9 Ventral hernia without obstruction or gangrene; M48.061 Spinal stenosis, lumbar region without neurogenic claudication; Z83.3 Family history of diabetes mellitus; Z85.3 Personal history of malignant neoplasm of breast; Z90.11 Acquired absence of right breast and nipple; Z90.49 Acquired absence of other specified parts of digestive tract; Z90.710 Acquired absence of both cervix and uterus; Z90.89 Acquired absence of other organs
CPT/HCPCS: 36415; 74018; 74177; 80048; 80053; 81001; 83605; 83690; 84484; 85025; 87086; 93005; J2270; J2405; J3010; J7030; Q9967

== ENCOUNTER → 2017-12-06 | Outpatient (CLI) | payer BC | END | disposition home or self-care (01) | LOC: RAD 09:44 | DX: N20.2 Calculus of kidney with calculus of ureter (principal) | CPT/HCPCS: 74018 ==

== ENCOUNTER → 2017-12-20 | Outpatient (CLI) | payer BC | END | disposition home or self-care (01) | LOC: RAD 10:17 | DX: N20.1 Calculus of ureter (principal) | CPT/HCPCS: 74018 ==

== ENCOUNTER 2018-01-01 23:34 | Emergency (ER) | payer BC ==
[2018-01-02] MEDS: LORazepam 1 MG TABLET PO (00:47)
[2018-01-02 00:48] LABS: ADD MAN DIFF? NO
[2018-01-02 00:50] LABS: BASO % 1 % (0-3); EOS # 0.2 x10^3/uL (0.0-0.7); EOS % 3 % (0-3); HEMATOCRIT 36.9 % (36.0-47.0); HEMOGLOBIN 12.8 g/dL (12.0-15.5); LYMPH % 30 % (24-48); MEAN CORPUSCULAR HEMOGLOBIN 32 pg (25-35); MEAN CORPUSCULAR HGB CONC 35 g/dL (31-37); MEAN CORPUSCULAR VOLUME 92 fL (79-100); MONO # 0.6 x10^3/uL (0.0-1.1); MONO % 8 % (0-9); NEUT # 3.9 x10^3uL (1.8-7.7); NEUT % 58 % (31-73); PLATELET COUNT 197 x10^3/uL (140-400); RED BLOOD COUNT 4.02 x10^6/uL (3.50-5.40); RED CELL DISTRIBUTION WIDTH 13.9 % (11.5-14.5); WHITE BLOOD COUNT 6.8 x10^3/uL (4.0-11.0)
[2018-01-02 01:05] LABS: ANION GAP 6 (6-14); BLOOD UREA NITROGEN 16 mg/dL (7-20); BUN/CREATININE RATIO 18 (6-20); CALCIUM 8.6 mg/dL (8.5-10.1); CARBON DIOXIDE 29 mmol/L (21-32); CHLORIDE 106 mmol/L (98-107); CREATININE 0.9 mg/dL (0.6-1.0); GFR 59.9; GLUCOSE 110 mg/dL (70-99); POTASSIUM 3.5 mmol/L (3.5-5.1); SODIUM 141 mmol/L (136-145)
[2018-01-02 01:11] LABS: ALBUMIN 3.3 g/dL (3.4-5.0); ALBUMIN/GLOBULIN RATIO 0.8 (1.0-1.7); ALK PHOS 76 U/L (46-116); ALT (SGPT) 18 U/L (14-59); AST (SGOT) 13 U/L (15-37); TOTAL BILIRUBIN 0.6 mg/dL (0.2-1.0); TOTAL PROTEIN 7.2 g/dL (6.4-8.2)
[2018-01-02 01:16] LABS: TROPONINI < 0.017 ng/mL (0.000-0.055)
== END 2018-01-02 02:21 | disposition home or self-care (01) ==
LOC: ER 23:34
DX: R42 Dizziness and giddiness (principal); J45.909 Unspecified asthma, uncomplicated; E78.00 Pure hypercholesterolemia, unspecified; I10 Essential (primary) hypertension; E03.9 Hypothyroidism, unspecified; Z90.49 Acquired absence of other specified parts of digestive tract; Z90.710 Acquired absence of both cervix and uterus
CPT/HCPCS: 36415; 80053; 84484; 85025; 93005; 99285-25

== ENCOUNTER → 2018-01-17 | Outpatient (CLI) | payer BC | END | disposition home or self-care (01) | LOC: RAD 10:51 | DX: N20.1 Calculus of ureter (principal); M51.36 Other intervertebral disc degeneration, lumbar region; M41.86 Other forms of scoliosis, lumbar region | CPT/HCPCS: 74018 ==

== ENCOUNTER → 2018-10-11 | Outpatient (CLI) | payer BC ==
[2018-01-02 02:07] VITALS: BP 159/69
[~2018-10-11] MED LIST changes: +ALBU1.25 NEB; -AMLO10TA2 PO; +AMLO10TA8 PO; -BENA20TA2 PO; +BENA20TA4 PO; +BENZ100C PO; +CIPR250T30 PO; +HYDR-2868 PO; +HYDR-3164 PO; +LEVO25TA4 PO; +LORA-434 PO; +MONT10TA9 PO; +PRED50TA PO; +TAMS0.4C97 PO
--- NOTE | 2018-10-11 16:16 | RAD ---
DATE: October 11, 2018. 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 COMPARISON: 2014 and 2016 2-D digital mammographic views of the left breast were performed in the CC and MLO projections. 3-D digital tomosynthesis images of the left breast were performed in the CC and MLO projections and reviewed on a computer workstation. This study was interpreted with the benefit of Computerized Aided Detection (CAD). FINDINGS: Breast Density: SCATTERED The breast parenchyma shows scattered fibroglandular densities. Breast parenchyma level B.. There are no dominant suspicious masses, suspicious microcalcifications or evidence of architectural distortion. IMPRESSION: No mammographic indicators for malignancy on the left side. BI-RADS CATEGORY: 1 NEGATIVE RECOMMENDED FOLLOW-UP: 12M 12 MONTH FOLLOW-UP PQRS compliance statement: Patient information was entered into a reminder system with a target due date October 12, 2019 for the next mammogram. Mammography is a sensitive method for finding small breast cancers, but it does not detect them all and is not a substitute for careful clinical examination. A negative mammogram does not negate a clinically suspicious finding and should not result in delay in biopsying a clinically suspicious abnormality. "Our facility is accredited by the [employer] Mammography Program." The patient's breast density may affect the ability of mammography to detect breast cancer. There are 4 categories of breast density, A, B, C and D. Breast density A means that most of the breast tissue is replaced with adipose tissue and therefore is not dense. Breast density B means that the breast tissue is mildly dense and scattered. Breast density C means that the breast tissue is heterogeneously dense. Breast density D means that the breast tissue is very dense. Breast densities especially C and D may decrease the sensitivity of mammography to detect breast cancer. Therefore, the patient may benefit from 3-D breast mammography (3D breast tomography) as a part of their screening mammogram. Insurance may or may not pay for this additional imaging. The patient's breast density based on today's mammogram is category B.
== END | disposition home or self-care (01) ==
LOC: MAMMO 14:51
PROVIDERS: ATTEND Family Medicine
DX: Z12.31 Encounter for screening mammogram for malignant neoplasm of breast (principal); Z85.3 Personal history of malignant neoplasm of breast; Z90.11 Acquired absence of right breast and nipple
CPT/HCPCS: 77063; 77067

== ENCOUNTER 2019-01-21 14:53 | Emergency (ER) | payer BC ==
[~2019-01-21] VITALS: Ht 152.4 cm; Wt 81.6 kg
[~2019-01-21 14:53] MED LIST changes: -ALBU1.25 NEB; -BENZ100C PO; -PRED50TA PO
[2019-01-21] MEDS ORDERED: methylPREDNISolone SOD SUCC PF 125 MG/2 ML VIAL. IV ONE (16:30)
[2019-01-21] MEDS ORDERED: IPRATRPIUM/ALBUTEROL 0.5/2.5MG 3 ML NEBU. NEB ONE (16:30)
[2019-01-21 16:41] LABS: BASO % 0 % (0-3); EOS # 0.1 x10^3/uL (0.0-0.7); EOS % 2 % (0-3); HEMATOCRIT 37.2 % (36.0-47.0); HEMOGLOBIN 12.8 g/dL (12.0-15.5); LYMPH # 1.6 x10^3/uL (1.0-4.8); LYMPH % 27 % (24-48); MEAN CORPUSCULAR HEMOGLOBIN 32 pg (25-35); MEAN CORPUSCULAR HGB CONC 34 g/dL (31-37); MEAN CORPUSCULAR VOLUME 93 fL (79-100); MONO # 0.6 x10^3/uL (0.0-1.1); MONO % 10 % (0-9); NEUT # 3.6 x10^3uL (1.8-7.7); NEUT % 60 % (31-73); PLATELET COUNT 189 x10^3/uL (140-400); RED BLOOD COUNT 4.01 x10^6/uL (3.50-5.40); RED CELL DISTRIBUTION WIDTH 13.6 % (11.5-14.5); WHITE BLOOD COUNT 5.9 x10^3/uL (4.0-11.0)
[2019-01-21 16:57] LABS: CALCIUM 9.1 mg/dL (8.5-10.1); CREATININE 0.9 mg/dL (0.6-1.0); GFR 59.8; POTASSIUM 3.5 mmol/L (3.5-5.1)
[2019-01-21 17:02] LABS: ALBUMIN 3.5 g/dL (3.4-5.0); ALBUMIN/GLOBULIN RATIO 0.9 (1.0-1.7); MAGNESIUM 1.9 mg/dL (1.8-2.4); TOTAL BILIRUBIN 0.5 mg/dL (0.2-1.0); TOTAL PROTEIN 7.5 g/dL (6.4-8.2)
--- NOTE | 2019-01-21 17:14 | RAD ---
CHEST PA LATERAL History: Cough Comparison: May 18, 2017 Findings: 2 views of the chest are submitted. Heart size is stable. There is no pneumothorax, dependent pleural fluid, lobar consolidation. There is likely emphysema. There is some increased fullness of the right hilar region. Impression: 1. No lobar infiltrate is identified by radiographs. There is probable emphysema. There is some right hilar fullness greater than previously, underlying lymphadenopathy not excluded by radiograph. Electronically signed by: Hitesh Mendenhall MD (01/21/2019 5:11 PM) [facility]
[2019-01-21] MEDS ORDERED: IOHEXOL 300 MG/ML 100ML VIAL. IV ONE (17:45)
[2019-01-21] MEDS ORDERED: CONTRAST GIVEN. MC PRN (18:00)
--- NOTE | 2019-01-21 18:36 | RAD ---
CT CHEST W/CONTRAST Indication: Lymphadenopathy on x-ray Technique: Postcontrast CT imaging was performed of the chest, multiplanar reconstruction images submitted. One or more of the following individualized dose reduction techniques were utilized for this examination: 1. Automated exposure control 2. Adjustment of the mA and/or kV according to patient size 3. Use of iterative reconstruction technique. Comparison: There is no previous CT CT available, correlation made with recent chest radiograph Findings: Thoracic aortic caliber is within normal limits without intraluminal flap, scattered plaque present. There is no pericardial or pleural fluid or pneumothorax. There is no lobar consolidation. Major airways are patent. Findings on radiograph are apparent related to the vasculature. There is multilevel thoracolumbar spondylosis and variable degenerative disc disease. There is mid thoracic dextroscoliosis. IMPRESSION: 1. There is no significant lymphadenopathy or acute abnormality of the chest. Electronically signed by: Hitesh Mendenhall MD (01/21/2019 6:33 PM) [facility]
[2019-01-21 18:51] VITALS: BP 151/66
[2019-01-21] MEDS ORDERED: BENZ100C PO (19:03)
[2019-01-21] MEDS ORDERED: PRED50TA PO (19:03)
[2019-01-21] MEDS ORDERED: ALBU1.25 NEB (19:03)
--- NOTE | 2019-01-21 19:04 | PHYS DOC ---
Past Medical History Past Medical History: Arrhythmia, Asthma, Cancer, High Cholesterol, Hypertension, Hypothyroid Additional Past Medical Histor: Breast CA Past Surgical History: Appendectomy, Cancer Surgery, Cholecystectomy, Hysterectomy, Tonsillectomy Additional Past Surgical Histo: R Mastectomy Alcohol Use: None Drug Use: None Adult General Chief Complaint Chief Complaint: FATIGUE HPI HPI Patient is a 83 year old female with history of asthma, hypothyroidism, hyperte nsion, high cholesterol, who presents to the ED today for aspiration pneumonia rule out. Patient states 2 weeks ago she had nausea vomiting and diarrhea which subsided a couple days later. She states 2 days ago she developed a productive cough with clear white sputum. She states she went to urgent care and was wheezing, she was sent to ED to be worked up for aspiration pneumonia. Patient denies any fever. Denies any vomiting or diarrhea. Denies any abdominal pain. Denies any chest pain or shortness of breath. Review of Systems Review of Systems Constitutional: Denies fever or chills [] Eyes: Denies change in visual acuity, redness, or eye pain [] HENT: Denies nasal congestion or sore throat [] Respiratory: Reports cough and wheezing, denies shortness of breath [] Cardiovascular: No additional information not addressed in HPI [] GI: Reports nausea vomiting and diarrhea 2 weeks ago that has subsided. Currently denies abdominal pain, nausea, vomiting, bloody stools or diarrhea [] : Denies dysuria or hematuria [] Musculoskeletal: Denies back pain or joint pain [] Integument: Denies rash or skin lesions [] Neurologic: Denies headache, focal weakness or sensory changes [] All other systems were reviewed and found to be within normal limits, except as documented in this note. Current Medications Current Medications Current Medications Medications (Trade) Dose Ordered Sig/Opal Start Time Stop Time Status Last Admin Dose Admin Albuterol/ Ipratropium (Duoneb) 3 ml 1X ONCE 01/21/19 16:30 01/21/19 16:31 DC 01/21/19 16:40 3 ML Info (CONTRAST GIVEN -- Rx MONITORING) 1 each PRN DAILY PRN 01/21/19 18:00 01/23/19 17:59 Iohexol (Omnipaque 300 Mg/ml) 60 ml 1X ONCE 01/21/19 17:45 01/21/19 17:48 DC 01/21/19 18:10 60 ML Methylprednisolone Sodium Succinate (SOLU-Medrol 125MG VIAL) 125 mg 1X ONCE 01/21/19 16:30 01/21/19 16:31 DC 01/21/19 16:48 125 MG Allergies Allergies Allergies Coded Allergies Type Severity Reaction Last Updated Verified No Known Drug Allergies 05/18/17 No Physical Exam Physical Exam Constitutional: Well developed, well nourished, no acute distress, non-toxic appearance. [] HENT: Normocephalic, atraumatic, bilateral external ears normal, oropharynx moist, no oral exudates, nose normal. [] Eyes: PERRLA, EOMI, conjunctiva normal, no discharge. [] Neck: Normal range of motion, no tenderness, supple, no stridor. [] Cardiovascular:Heart rate regular rhythm, no murmur [] Lungs & Thorax: Scattered wheezing throughout the lung bases Abdomen: Bowel sounds normal, soft, no tenderness, no masses, no pulsatile masses. [] Skin: Warm, dry, no erythema, no rash. [] Back: No tenderness, no CVA tenderness. [] Extremities: No tenderness, no cyanosis, no clubbing, ROM intact, no edema. [] Neurologic: Alert and oriented X 3, normal motor function, normal sensory function, no focal deficits noted. [] Psychologic: Affect normal, judgement normal, mood normal. [] Current Patient Data Vital Signs Vital Signs Date Time Temp Pulse Resp B/P (MAP) Pulse Ox O2 Delivery O2 Flow Rate FiO2 01/21/19 18:09 82 173/72 (105) 01/21/19 16:47 96 Room Air 01/21/19 15:53 98.5 20 98.5 Lab Values Laboratory Tests Test 01/21/19 16:16 White Blood Count 5.9 x10^3/uL (4.0-11.0) Red Blood Count 4.01 x10^6/uL (3.50-5.40) Hemoglobin 12.8 g/dL (12.0-15.5) Hematocrit 37.2 % (36.0-47.0) Mean Corpuscular Volume 93 fL (79-100) Mean Corpuscular Hemoglobin 32 pg (25-35) Mean Corpuscular Hemoglobin Concent 34 g/dL (31-37) Red Cell Distribution Width 13.6 % (11.5-14.5) Platelet Count 189 x10^3/uL (140-400) Neutrophils (%) (Auto) 60 % (31-73) Lymphocytes (%) (Auto) 27 % (24-48) Monocytes (%) (Auto) 10 % (0-9) H Eosinophils (%) (Auto) 2 % (0-3) Basophils (%) (Auto) 0 % (0-3) Neutrophils # (Auto) 3.6 x10^3uL (1.8-7.7) Lymphocytes # (Auto) 1.6 x10^3/uL (1.0-4.8) Monocytes # (Auto) 0.6 x10^3/uL (0.0-1.1) Eosinophils # (Auto) 0.1 x10^3/uL (0.0-0.7) Basophils # (Auto) 0.0 x10^3/uL (0.0-0.2) Sodium Level 141 mmol/L (136-145) Potassium Level 3.5 mmol/L (3.5-5.1) Chloride Level 104 mmol/L (98-107) Carbon Dioxide Level 27 mmol/L (21-32) Anion Gap 10 (6-14) Blood Urea Nitrogen 17 mg/dL (7-20) Creatinine 0.9 mg/dL (0.6-1.0) Estimated GFR (Cockcroft-Gault) 59.8 BUN/Creatinine Ratio 19 (6-20) Glucose Level 115 mg/dL (70-99) H Calcium Level 9.1 mg/dL (8.5-10.1) Magnesium Level 1.9 mg/dL (1.8-2.4) Total Bilirubin 0.5 mg/dL (0.2-1.0) Aspartate Amino Transferase (AST) 22 U/L (15-37) Alanine Aminotransferase (ALT) 23 U/L (14-59) Alkaline Phosphatase 66 U/L (46-116) Creatine Kinase 523 U/L (26-192) H Creatine Kinase MB (Mass) 1.2 ng/mL (0.0-3.6) Creatine Kinase MB Relative Index 0.2 % (0-4) Troponin I Quantitative < 0.017 ng/mL (0.000-0.055) ZT-Wdp-F-Type Natriuretic Peptide 341 pg/mL (0-449) Total Protein 7.5 g/dL (6.4-8.2) Albumin 3.5 g/dL (3.4-5.0) Albumin/Globulin Ratio 0.9 (1.0-1.7) L Laboratory Tests 01/21/19 16:16 Laboratory Tests 01/21/19 16:16 EKG EKG [] Radiology/Procedures Radiology/Procedures PROCEDURE: CHEST PA & LATERAL CHEST PA LATERAL History: Cough Comparison: May 18, 2017 Findings: 2 views of the chest are submitted. Heart size is stable. There is no pneumothorax, dependent pleural fluid, lobar consolidation. There is likely emphysema. There is some increased fullness of the right hilar region. Impression: 1. No lobar infiltrate is identified by radiographs. There is probable emphysema. There is some right hilar fullness greater than previously, underlying lymphadenopathy not excluded by radiograph. Electronically signed by: Michelle Marie MD (01/21/2019 5:11 PM) [facility] DICTATED and SIGNED BY: MICHELLE MARIE MD DATE: 01/21/19 5521 []PROCEDURE: CT CHEST W/CONTRAST CT CHEST W/CONTRAST Indication: Lymphadenopathy on x-ray Technique: Postcontrast CT imaging was performed of the chest, multiplanar reconstruction images submitted. One or more of the following individualized dose reduction techniques were utilized for this examination: 1. Automated exposure control 2. Adjustment of the mA and/or kV according to patient size 3. Use of iterative reconstruction technique. Comparison: There is no previous CT CT available, correlation made with recent chest radiograph Findings: Thoracic aortic caliber is within normal limits without intraluminal flap, scattered plaque present. There is no pericardial or pleural fluid or pneumothorax. There is no lobar consolidation. Major airways are patent. Findings on radiograph are apparent related to the vasculature. There is multilevel thoracolumbar spondylosis and variable degenerative disc disease. There is mid thoracic dextroscoliosis. IMPRESSION: 1. There is no significant lymphadenopathy or acute abnormality of the chest. Electronically signed by: Michelle Marie MD (01/21/2019 6:33 PM) [facility] DICTATED and SIGNED BY: MICHELLE MARIE MD DATE: 01/21/19 2068 Course & Med Decision Making Course & Med Decision Making Pertinent Labs and Imaging studies reviewed. (See chart for details) This is a 83-year-old female patient with history of asthma who presents to the ED today for aspiration pneumonia rule out. Patient was seen at urgent care. She informed them she had nausea vomiting and diarrhea 2 weeks ago and started cou ghing 2 days ago. The nausea vomiting and diarrhea subsided 2 weeks ago. Patient has no fever. Was wheezing, has history of asthma. Patient's labs are negative for any acute findings. Chest x-ray was noted for possible lymphadenopathy. CT chest was obtained which was negative. Patient was given Solu-Medrol, DuoNeb treatment. Breathing is back to baseline, lungs have cleared up. Interested in going home. Was discharged, follow-up with primary care doctor. Provided prescription for prednisone and albuterol nebulizer treatments. Dragon Disclaimer Dragon Disclaimer This electronic medical record was generated, in whole or in part, using a voice recognition dictation system. Departure Departure Impression: Primary Impression: Asthma exacerbation Additional Impression: Cough Disposition: HOME, SELF-CARE Condition: STABLE Referrals: MAME ARMSTRONG MD (PCP) Follow-up in 1-2 weeks Patient Instructions: Asthma, Adult, Cough, Adult Additional Instructions: You were evaluated in the emergency room with symptoms consistent of asthma exacerbation. Use the prescribed medications as ordered. Please follow-up with your doctor in the next 3-7 days. Scripts Prednisone (PREDNISONE) 50 Mg Tablet 1 TAB PO DAILY, #5 TAB Prov: ISHAAN ABDI APRN 01/21/19 Benzonatate (TESSALON PERLE) 100 Mg Capsule 1 CAP PO TID, #30 CAP Prov: ISHAAN ABDI APRN 01/21/19 Albuterol Sulfate (ALBUTEROL SULFATE NEB SOLN) 1.25 Mg/3 Ml Vial.neb 1 VIAL NEB Q6HRS, #150 ML Prov: ISHAAN ABDI APRN 01/21/19 Problem Qualifiers Primary Impression: Asthma exacerbation Asthma severity: mild Asthma persistence: persistent Qualified Codes: J45.31 - Mild persistent asthma with (acute) exacerbation ISHAAN ABDI APRN Jan 21, 2019 19:04
--- NOTE | 2019-01-22 05:42 | EKG ---
[facility] [address] [place] [address] Test Date: 2019-01-21 Test Time: 16:35:00 Pat Name: MARCOS FINK Department: Room: Gender: F [employer] President: : 1935 Requested By: ISHAAN ABDI Order Number: [id number] Reading MD: Measurements Intervals [place] Rate: 70 P: -4 AK: 196 QRS: -25 QRSD: 122 T: 52 QT: 404 QTc: 439 Interpretive Statements SINUS RHYTHM LEFTWARD AXIS LEFT VENTRICULAR HYPERTROPHY T ABNORMALITY IN HIGH LATERAL LEADS ABNORMAL ECG RI6.01 Unconfirmed report No previous ECG available for comparison
== END 2019-01-21 19:18 | disposition home or self-care (01) ==
LOC: ER 14:53
DX: J45.31 Mild persistent asthma with (acute) exacerbation (principal); R11.2 Nausea with vomiting, unspecified; R19.7 Diarrhea, unspecified; E78.00 Pure hypercholesterolemia, unspecified; E03.9 Hypothyroidism, unspecified; I10 Essential (primary) hypertension
CPT/HCPCS: 36415; 71046; 71260; 80053; 82553; 83735; 83880; 84484; 85025; 93005; 94640; 96374; 99285; J2930; J7620; Q9967